=== PATIENT | male | born 1975 | race Caucasian/White ===

== ENCOUNTER 2023-01-04 08:31 | Outpatient (REF) | payer OTHER, SELFPAY ==
[2023-01-04 13:48] LABS: CT PCR NOT DETECTED (Not Detect.); NG PCR NOT DETECTED (Not Detect.)
[2023-01-05 08:03] LABS: HIV AB/AG Nonreactive (Nonreactive); ~HepC Num1 0.08 S/CO (0.00-0.79); ~Hepatitis C Antibody Nonreactive (Nonreactive)
[2023-01-05 08:08] LABS: Syphilis Screen Nonreactive (Nonreactive)
== END 2023-01-04 08:32 | disposition home or self-care (01) ==
LOC: HO.HMGCLDS 08:31
PROVIDERS: PCP Internal Medicine; Visit Provider Emergency Medicine
DX: Z11.4 Encounter for screening for human immunodeficiency virus [HIV] (principal); Z11.3 Encounter for screening for infections with a predominantly sexual mode of transmission; Z20.2 Contact with and (suspected) exposure to infections with a predominantly sexual mode of transmission; Z71.1 Person with feared health complaint in whom no diagnosis is made
CPT/HCPCS: 0353U; 36415; 86780; 86803; 87389

== ENCOUNTER 2023-06-27 10:08 | Outpatient (REF) | payer OTHER, SELFPAY ==
[2023-06-27 12:55] LABS: Anion Gap 15 (12-20); Blood Urea Nitrogen 13 mg/dL (9-16); Calcium 9.7 mg/dL (8.4-10.2); Carbon Dioxide 24 mmol/L (22-29); Chloride 106 mmol/L (96-108); Estimated Glomerular Filt Rate > 60; Glucose Fasting 76 mg/dL (60-99); Potassium 4.2 mmol/L (3.3-5.1); Sodium 141 mmol/L (135-145)
[2023-06-28 23:23] LABS: Lyme Abs Screen <0.90 index
== END 2023-06-27 10:09 | disposition home or self-care (01) ==
LOC: HO.LAB 10:08
PROVIDERS: Visit Provider Psychiatry & Neurology Neurology
DX: M99.09 Segmental and somatic dysfunction of abdomen and other regions (principal)
CPT/HCPCS: 36415; 80048; 86617; 86618

== ENCOUNTER 2023-08-08 09:40 | Outpatient (REF) | payer OTHER, SELFPAY | END 2023-08-08 09:41 | disposition home or self-care (01) | LOC: HO.MRI 09:40 | PROVIDERS: PCP Internal Medicine; Visit Provider Psychiatry & Neurology Neurology | DX: Z13.89 Encounter for screening for other disorder (principal) ==

== ENCOUNTER 2023-08-22 08:56 | Outpatient (REF) | payer OTHER, SELFPAY ==
[2023-08-22 10:33] LABS: Syphilis Screen Nonreactive (Nonreactive)
[2023-08-22 11:07] LABS: Lactate Dehydrogenase 200 U/L (118-273)
== END 2023-08-22 08:57 | disposition home or self-care (01) ==
LOC: HO.LAB 08:56
PROVIDERS: PCP Internal Medicine; Visit Provider Psychiatry & Neurology Neurology
DX: M48.00 Spinal stenosis, site unspecified (principal)
CPT/HCPCS: 36415; 82550; 83615; 86780

== ENCOUNTER 2023-09-28 09:43 | Outpatient (AMB) | payer OTHER, SELFPAY ==
--- NOTE | 2023-09-28 09:46 | MHC.OFFVIS ---
Intake Vital Signs 09/28/23 09:51 Weight 327 lb BP 146/70 H Blood Pressure Location Rt brachial Position Sitting Pulse 84 Intake Visit Reasons: Paraspinal muscle Bx Intake Note: This patient was referred by Dr. Helm for a paraspinal muscle biopsy consultation. Patient c/o; reports trouble walking. 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 He says that he has been following a neurologist for about 5 years now because of frequent cramping and tightness of his back. He has had this bulge on the left flank area that was deep to be secondary to muscle atrophy. He is being worked up for this as his imaging studies had shown paraspinal muscle atrophy of the left abdominal wall muscles. He denies any other significant muscle weakness nor sensory deficits. His CPK levels have been elevated. 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 FORMERLY [facility], [facility]–1983 Medical History (Updated 09/28/23 @ 10:08 by Austyn Reid MD) Muscular dystrophy Morbid obesity Concern about STD in male without diagnosis Surgical History History of surgery on upper extremity Review of Systems Const Denies chills and Denies fever(s) Card Denies chest pain, Denies dyspnea and Denies dyspnea on exertion Resp Denies cough, Denies dyspnea and Denies dyspnea on exertion GI Denies hematochezia and Denies change in bowel habits Denies hematuria and Denies difficulty urinating Musc Reports back pain and Denies limited range of motion Neuro Denies focal weakness and Denies convulsions Psych Denies depression and Denies mood swings Physical Exam Const General: comfortable and no acute distress Orientation/consciousness: patient oriented x3 Neck Neck: Yes no lymphadenopathy Resp Auscultation: clear to auscultation bilaterally Cardio Rhythm: regular rhythm GI Other: Bulging on the left area Palpation (GI): Soft to palpation, nontender and no guarding Neuro General: patient oriented x3 Assessment & Plan Assessment & Plan (1) Muscular dystrophy: Code(s): G71.00 - Muscular dystrophy, unspecified Plan: He is being worked for muscle dystrophy and has this weakness of the abdominal wall and flank area on the. He was referred for muscle biopsy of the paraspinal muscles. I explained to him the technique of this procedure which will be done under anesthesia in the operating room. I discussed the risks including but not limited to bleeding, infections, postop pain, poor healing, as well as the benefits and alternatives. He understands and wants to proceed Coding Level of Care Code New Pt Level 3 (36686) Diagnoses Muscular dystrophy G71.00
[2023-09-28 09:51] VITALS: BP 146/70; PULSE 84
== END 2023-09-28 10:08 | disposition home or self-care (01) ==
PROVIDERS: PCP Internal Medicine; Referring Provider Psychiatry & Neurology Neurology; Visit Provider Surgery
DX: G71.00 Muscular dystrophy, unspecified (principal)
CPT/HCPCS: 99203

== ENCOUNTER → 2023-09-28 09:43 | Outpatient (BNVA) | payer OTHER, SELFPAY | PROVIDERS: PCP Internal Medicine; Visit Provider Surgery | DX: G71.00 Muscular dystrophy, unspecified (principal) | CPT/HCPCS: 99202 ==

== ENCOUNTER 2023-10-11 08:05 | Day surgery (SDC) | payer OTHER, SELFPAY ==
--- NOTE | 2023-10-10 09:15 | P.CONAN_ITS ---
Documented by User: Glenda White NP 10/10/23 09:17 HPI - Anesthesia Eval Consult details Narrative: 47yo M for Muscle Biopsy under anesthesia for paraspinal muscle of back [facility] Active Problems Active Problems: All Active Problems (Updated 09/28/23 @ 10:08 by Austyn Reid MD) Muscular dystrophy (Acute) Morbid obesity (Acute) Concern about STD in male without diagnosis (Acute) Past Medical History Medical History Muscular dystrophy Morbid obesity Concern about STD in male without diagnosis Surgical History Surgical History History of surgery on upper extremity Social History Social History Patient Tobacco Use Status: Never used Tobacco Are you DNR?: No Advance Directives: No Advance Directives Information Provided: Yes Nutrition Risks: No Nutritional Risk Meds Allergies Allergy/AdvReac Type Severity Reaction Status Date / Time Iodinated Contrast Media Allergy Severe Hives Verified 10/11/23 08:56 [IV CONTRAST] Home Medications Medication Instructions Recorded Confirmed Last Taken Type multivitamin 1 tab PO DAILY 09/28/23 10/07/23 Unknown History Exam Exam Date and Time: October 10, 202315 Height,Weight and Vital Signs: Weight 148.325 kg Pertinent Lab Results Pertinent Lab Results: Laboratory Tests 06/27/23 10:23 Sodium 141 Potassium 4.2 Chloride 106 Carbon Dioxide 24 BUN 13 Creatinine 0.80 Assessment and Plan Assessment Anesthesia Assessment: Chart Reviewed Documented by User: Colt Nevarez MD 10/11/23 09:53 [facility] Past Medical History Medical History Muscular dystrophy Morbid obesity Concern about STD in male without diagnosis Surgical History Surgical History History of surgery on upper extremity History of Problems with Anesthesia: No Social History Social History Patient Tobacco Use Status: Never used Tobacco Are you DNR?: No Advance Directives: No Advance Directives Information Provided: Yes Nutrition Risks: No Nutritional Risk Meds Allergies Allergy/AdvReac Type Severity Reaction Status Date / Time Iodinated Contrast Media Allergy Severe Hives Verified 10/11/23 08:56 [IV CONTRAST] Home Medications Medication Instructions Recorded Confirmed Last Taken Type multivitamin 1 tab PO DAILY 09/28/23 10/07/23 Unknown History Exam Airway Mallampati Class: II TM Dist: >3cm Neck ROM: Full Heart: rrr Lungs: cta Assessment and Plan Assessment Anesthesia Assessment: Anesthesia Plan Discussed Final Anesthetic Review History of Problems with Anesthesia: No ASA Class: III Final Preanesthetic Review: No Changes in Pt Med Stat, Meds/Allgs Chart Reviewed, Consent Obtained/Reviewed and Anes Risks/Benef Reviewed Patient Risk: Intermediate Procedure Risk: Low Anesthetic Plan Anesthetic Plan: MAC: and Agree w/ Assess. and Plan Disposition: Standard PACU
[2023-10-11] VITALS (11 sets, daily range): BP systolic 83–138; BP diastolic 42–86; PULSE 53–72; RESP 16–18; TEMP 36.1–36.6; O2SAT 88–97; BMI 41.1
[2023-10-11] MEDS: Lactated Ringers 1,000 ML 100 ML IVCONT (08:39)
--- NOTE | 2023-10-11 09:35 | MHC.SHP ---
Pre-Procedural Eval Section A Date of Service: 10/11/23 The patient is an INPATIENT: No Changes since office visit: No Cold of Flu in the past 2 weeks, No New Medical Problems, No Changes in Medication and No Patient answered all questions The History & Physical has been completed within 30 days and I have reviewed it.: Yes Section B Chief Complaint: Muscular dystrophy, unspecified Allergies: Allergies Allergy/AdvReac Type Severity Reaction Status Date / Time Iodinated Contrast Media Allergy Severe Hives Verified 10/11/23 08:56 [IV CONTRAST] Plan I have reviewed the history and physical and performed a pertinent physical examination on my patient. No changes have occurred unless specified. Time Spent With Patient Time: Total time managing care of this patient today ____ minutes.
--- NOTE | 2023-10-11 10:41 | P.OP_ITS ---
Operative Note Operative Note Date of Service: 10/11/23 Narrative: Preop diagnosis: Muscular dystrophy Postop diagnosis: Muscular dystrophy Procedure: Muscle biopsy, left paraspinal muscle under MAC Surgeon: Austyn Reid MD captain assistant: JUSTIN Myrick The patient is a 47-year-old male with weakness of the abdominal wall muscle and flank area on the left. He had imaging study showing atrophy of these muscles. He was referred to me for paraspinal muscle biopsy by the neurologist. He understood the technique of the procedure under anesthesia. He was aware of the risks, benefits, and alternatives He was brought to the operating room. He was placed in prone position under monitored anesthesia care. The mid back area was prepped and draped in the usual sterile fashion. A surgical time-out was done. The patient received cefazolin 3 g IV preoperatively . I infiltrated the planned line of incision on the left paraspinal area with lidocaine 1%. I made a generous incision in view of the patient's morbid obesity longitudinally using a blade 15. this was carried down with electrocautery through the full-thickness of the skin and thick subcutaneous fat. Again, in view of the patient's habitus, we had to go through thick amount of subcutaneous fat before we were able to visualize the fascia. The fascia was incised. I proceeded to expose the muscle fibers. I isolated muscle fibers and do this proximally distally and placed this on muscle biopsy clamps. Two samples of these muscle fibers were obstained and sent. I cauterized divided muscle for hemostasis. I copies irrigated. Once hemostasis was confirmed, I post the fascia with a [id number] Polysorb 2-0 stitch. The thick subcutaneous layer was reapposed with Polysorb 3-0 interrupted sutures. Skin closure was achieved with Polysorb 4-0 subcuticular running stitch . The area was then infiltrated with Marcaine 0.5% for postop analgesia. Dressings were applied. The procedure was completed. The patient tolerated the procedure well. There were no immediate compl ications. Estimated blood loss was about 5 cc. Patient was then transferred to the recovery room with stable vital signs.
[2023-10-11] MEDS: ondansetron HCL 4 MG/2 ML VIAL IVPUSH (13:29)
== END 2023-10-11 14:51 | disposition home or self-care (01) ==
PROVIDERS: PCP Internal Medicine; Visit Provider Surgery
PROC: (CPT 20205; principal; 2023-10-11 10:20)
DX: G71.00 Muscular dystrophy, unspecified (principal); E66.01 Morbid (severe) obesity due to excess calories; Z79.899 Other long term (current) drug therapy; Z91.041 Radiographic dye allergy status
CPT/HCPCS: 20205; 88300; 88305; 88313; 88319; 88348; J0690; J2250; J2405; J2795; J3010

== ENCOUNTER → 2023-10-11 08:05 | Outpatient (BNV) | payer OTHER, SELFPAY | PROVIDERS: PCP Internal Medicine; Visit Provider Surgery | DX: G71.00 Muscular dystrophy, unspecified (principal) | CPT/HCPCS: 20205 ==

== ENCOUNTER 2023-10-24 09:30 | Outpatient (AMB) | payer OTHER, SELFPAY ==
--- NOTE | 2023-10-24 09:35 | A.OFFVIS_ITS ---
Intake Vital Signs 10/24/23 09:45 Height 6 ft 2 in Weight 324 lb 8 oz BMI 41.7 BP 144/70 H Blood Pressure Location Lt brachial Position Sitting Pulse 64 Intake Visit Reasons: S/P paraspinal muscle biopsy Intake Note: Patient is seen in office for post op assessment post paraspinal muscle biopsy. 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 He tolerated them procedure well. He currently denies significant complaints. FORMERLY [facility], [facility] Medical History Muscular dystrophy Morbid obesity Concern about STD in male without diagnosis Surgical History History of surgery on upper extremity Patient Tobacco Use Status: Never used Tobacco Review of Systems Const Denies chills and Denies fever(s) Card Denies chest pain, Denies dyspnea and Denies dyspnea on exertion Resp Denies cough, Denies dyspnea and Denies dyspnea on exertion GI Denies hematochezia and Denies change in bowel habits Denies hematuria and Denies difficulty urinating Musc Denies back pain and Denies limited range of motion Neuro Denies focal weakness and Denies convulsions Psych Denies depression and Denies mood swings Physical Exam Const Other: Morbidly obese General: comfortable and no acute distress Back/Spine/Pelvis Other: Incision is well healed, no signs of infection Assessment & Plan Assessment & Plan (1) Muscular dystrophy: Code(s): G71.00 - Muscular dystrophy, unspecified Plan: Status post para spinal muscle biopsy. The incision is well healed. His final path report is not back yet. He can otherwise follow up with me on a p.r.n. basis. His path report will be forwarded to his neurologist and primary care physician. Coding Level of Care Code Global (07087) Diagnoses Muscular dystrophy G71.00
[2023-10-24 09:45] VITALS: BP 144/70; PULSE 64; BMI 41.7
== END 2023-10-24 09:47 | disposition home or self-care (01) ==
PROVIDERS: PCP Internal Medicine; Visit Provider Surgery
DX: G71.00 Muscular dystrophy, unspecified (principal)
CPT/HCPCS: 99024

== ENCOUNTER → 2023-10-24 09:30 | Outpatient (BNVA) | payer OTHER, SELFPAY | PROVIDERS: PCP Internal Medicine; Visit Provider Surgery ==

== ENCOUNTER 2024-04-24 09:35 | Outpatient (AMB) | payer OTHER, SELFPAY ==
[2024-04-24 10:11] VITALS: BP 122/80; PULSE 77; TEMP 36.1; O2SAT 95; BMI 42.2
--- NOTE | 2024-04-24 10:11 | MHC.OFFWIV ---
Intake Vital Signs 04/24/24 10:11 Height 6 ft 2 in Weight 329 lb BMI 42.2 BP 122/80 Blood Pressure Location Lt brachial Position Sitting Pulse 77 Pulse Source Pulse Oximeter Temp 97.0 F Temp Source Temporal Artery Scan Pulse Oximetry (%) 95 Oxygen Delivery Method Room Air Intake Visit Reasons: EST/right foot pain (lobby) Intake Note: pt is here today for rt foot pain started 1 week ago Patient Tobacco Use Status: Never used Tobacco Allergies Iodinated Contrast Media [IV CONTRAST] Allergy (Severe, Verified 04/24/24 11:04) Hives Medication List - Last Reconciled 04/24/24 by SAMANTHA Santos ibuprofen 600 mg PO Q6H PRN meloxicam 15 mg PO DAILY multivitamin 1 tab PO DAILY prednisone 50 mg PO DAILY Do you need a note to return to daycare/school/sports/work: No HPI HPI Comments History of Present Illness Details Patient is a 48-year-old male in today for a sick visit. Reports waking up 1 day prior to this appointment with pain on the dorsal aspect of his right foot. Also reports scant amount of swelling. Patient denies any trauma to the area. Has utilized [id number] Tylenol with mild relief. Patient is able to walk on the extremity with a limp. Has history of happening before, states he just wake up sometimes and he will have right foot pain even though he did did not hit it or injury in any way. On physical exam patient has erythema over the right medial protrusion of the metatarsal head. Patient has scant edema. Able to ambulate on the affected extremity. No tingling or numbness. No drainage. [facility] Medical History Muscular dystrophy Morbid obesity Concern about STD in male without diagnosis Surgical History History of biopsy (10/11/23) History of surgery on upper extremity Social History Patient Tobacco Use Status: Never used Tobacco Review of Systems Const All systems reviewed & are unremarkable except as noted in HPI and below Denies fever(s) Card Denies chest pain and Denies dyspnea Resp Denies dyspnea Musc Denies deformity, Reports arthralgias (Right foot) and Denies tingling Skin/Breast Reports erythema (Right foot) Neuro Denies tingling and Denies paresthesias Physical Exam Vital Signs: Last Vital Signs Temp 97.0 F 04/24/24 10:11 Pulse 77 04/24/24 10:11 BP 122/80 04/24/24 10:11 Pulse Ox 95 04/24/24 10:11 Oxygen Delivery Method Room Air 04/24/24 10:11 BMI result Body Mass Index 42.2 Const Other: Appearance: Alert.? Oriented X3.? No acute distress.? Head: Normocephalic. Neck: Normal inspection.? Neck supple.? CVS: Normal heart rate and rhythm.? Pulses normal.? Respiratory: No respiratory distress.? Breath sounds normal.? Abdomen: Soft and nontender.? Skin: +erythema over right medial protrusion of metatarsal head. Extremities: Scant right foot edema. +tenderness to 1st and 2nd metatarsal. No obvious deformity. Neuro: Oriented X 3.? No motor deficit.? No sensory deficit. CN 2-12 intact Assessment & Plan Assessment & Plan (1) Right foot pain: Comment: Presentation most consistent with gout or inflamed bunion. Will obtain x-ray. Patient will be given meloxicam and prednisone and instructed to rest the affected joint. Can also utilize ice for 15 minutes per application. Patient has been educated on signs of worsening symptoms and when to report back to the walk-in or when to present to the ED. Code(s): M79.671 - Pain in right foot Plan: Take your medications as prescribed. If you were prescribed antibiotics today, it is important that you take your medication to their entirety, do not skip any doses, do not finish them early. Follow-up with your primary care provider this week. Return to the emergency department with new or worsening symptoms. Such as fevers, chills, chest pain, shortness of breath, nausea, vomiting, dizziness, headache, vision changes, lethargy In case of emergency call 911 Plan Follow-up with PCP Orders: Orders XR foot RT min 3V Today M79.671 - Pain in right foot Medications: New prednisone 50 mg PO DAILY 5 tabs 0RF meloxicam Do not combine with other NSAIDS. 15 mg PO DAILY 14 tabs 0RF Coding Level of Care Code Est Pt Level 3 (74718) Diagnoses Right foot pain M79.671 Time Spent (min) 25
== END 2024-04-24 11:29 | disposition home or self-care (01) ==
PROVIDERS: PCP Internal Medicine; Visit Provider Nurse Practitioner Primary Care
DX: M79.671 Pain in right foot (principal)
CPT/HCPCS: 99213

== ENCOUNTER 2024-04-24 10:48 | Outpatient (REF) | payer OTHER, SELFPAY ==
--- NOTE | ~2024-04-24 | XR_ITS ---
EXAMINATION: XR FOOT, RIGHT CLINICAL INFORMATION: Right foot pain COMPARISON: None available. TECHNIQUE: AP, lateral, and oblique views of the right foot. FINDINGS: Some minimal degenerative changes are present at DIP joints with some mild lateral subluxation/angulation of the PIP joint of the second toe. Some mild osteophytes are seen arising from the medial malleolus. The bones and soft tissues are otherwise unremarkable. No fracture. Alignment is anatomic. Joint spaces are maintained. XR/XR foot RT min 3V IMPRESSION: Mild degenerative changes as described above. No acute finding.
== END 2024-04-24 10:49 | disposition home or self-care (01) ==
LOC: HO.HMGCX 10:48
PROVIDERS: PCP Internal Medicine; Visit Provider Nurse Practitioner Primary Care
DX: M79.671 Pain in right foot (principal)
CPT/HCPCS: 73630

== ENCOUNTER 2024-05-17 09:51 | Outpatient (AMB) | payer OTHER, SELFPAY ==
--- NOTE | 2024-05-17 10:04 | AM.OFFWIN_ITS ---
Intake Vital Signs 05/17/24 10:05 Height 6 ft 2 in Weight 329 lb BMI 42.2 BP 120/78 Blood Pressure Location Lt brachial Position Sitting Pulse 82 Pulse Source Pulse Oximeter Temp 97.5 F Temp Source Temporal Artery Scan Pulse Oximetry (%) 95 Oxygen Delivery Method Room Air Intake Visit Reasons: EP? Refill Rx for Gout Intake Note: pt is here today for refill for gout started Patient Tobacco Use Status: Never used Tobacco Allergies Iodinated Contrast Media [IV CONTRAST] Allergy (Severe, Verified 05/17/24 10:13) Hives Do you need a note to return to daycare/school/sports/work: No HPI HPI Comments History of Present Illness Details 48 y/o male patient who presents to walk in clinic with c/o right foot/Big toe pain and swelling. Pt was seen at the Walk in clinic and was diagnosed with Gout. He was given Prednisone and Meloxicam. Pt reports completing the dose and now feels like the symptoms have returned. Pt asking for refills of medications. Right Foot Xray: FINDINGS: Some minimal degenerative changes are present at DIP joints with some mild lateral subluxation/angulation of the PIP joint of the second toe. Some mild osteophytes are seen arising from the medial malleolus. The bones and soft tissues are otherwise unremarkable. No fracture. Alignment is anatomic. Joint spaces are maintained. ON LICENSE OF [facility] Medical History Muscular dystrophy Morbid obesity Concern about STD in male without diagnosis Surgical History History of biopsy (10/11/23) History of surgery on upper extremity Social History Patient Tobacco Use Status: Never used Tobacco Review of Systems Const All systems reviewed & are unremarkable except as noted in HPI and below Physical Exam Vital Signs: Last Vital Signs Temp 97.5 F 05/17/24 10:05 Pulse 82 05/17/24 10:05 BP 120/78 05/17/24 10:05 Pulse Ox 95 05/17/24 10:05 Oxygen Delivery Method Room Air 05/17/24 10:05 BMI result Body Mass Index 42.2 Const General: comfortable and no acute distress Nutritional Appearance: obese Orientation/consciousness: patient oriented x3 Neuro Other: Walks with slight limp General: patient oriented x3 and moves all extremities Extrem Right lower extremity: foot Details: tenderness Location: of the great toe Locat ion: along the dorsal aspect, toes with normal ROM, warmth Location: of the great toe Location: at the MTP joint and edema Location: of the great toe; no crepitus Psych Speech and movement: Normal speech and movement present Assessment & Plan Assessment & Plan (1) Right foot pain: Comment: DDx's: Gout, Bunion, Arthritis Code(s): M79.671 - Pain in right foot Plan: - 5th big Toe mild swelling and redness, Tender to touch @ MTP. Warmth to touch. - Ordered Urine Uric Acid levels - Started Colchicine - Refilled Meloxicam - F/U with PCP. Orders: Orders Uric Acid Urine Random Today M79.671 - Pain in right foot Medications: New colchicine 0.6 mg PO DAILY 30 caps 0RF M79.671 - Pain in right foot Refilled meloxicam Do not combine with other NSAIDS. 15 mg PO DAILY 30 tabs 0RF M79.671 - Pain in right foot Discontinued ibuprofen Discontinued Reason: Patient Completed Course 600 mg PO Q6H PRN 30 tabs 0RF pain Coding Level of Care Code Est Pt Level 3 (16103) Diagnoses Right foot pain M79.671 Time Spent (min) 15
[2024-05-17 10:05] VITALS: BP 120/78; PULSE 82; TEMP 36.4; O2SAT 95; BMI 42.2
== END 2024-05-17 11:01 | disposition home or self-care (01) ==
PROVIDERS: PCP Internal Medicine; Visit Provider Nurse Practitioner Family
DX: M79.671 Pain in right foot (principal)
CPT/HCPCS: 99213

== ENCOUNTER 2024-05-17 10:42 | Outpatient (REF) | payer OTHER, SELFPAY | END 2024-05-17 10:43 | disposition home or self-care (01) | LOC: HO.HMGCLDS 10:42 | PROVIDERS: PCP Internal Medicine; Visit Provider Nurse Practitioner Family | DX: M79.671 Pain in right foot (principal) | CPT/HCPCS: 84560 ==

== ENCOUNTER 2024-07-20 12:34 | Outpatient (AMB) | payer OTHER, SELFPAY ==
--- NOTE | 2024-07-20 12:39 | AM.OFFWIN_ITS ---
Intake Vital Signs 07/20/24 12:40 Height 6 ft 2 in Weight 332 lb BMI 42.6 BP 118/82 Blood Pressure Location Lt brachial Position Sitting Pulse 68 Pulse Source Pulse Oximeter Temp 98.2 F Temp Source Oral Pulse Oximetry (%) 97 Oxygen Delivery Method Room Air Intake Visit Reasons: EP Gout Intake Note: pt c/o gout RT foot. Started 2 days ago Patient Tobacco Use Status: Never used Tobacco Allergies Iodinated Contrast Media [IV CONTRAST] Allergy (Severe, Verified 07/20/24 12:39) Hives Do you need a note to return to daycare/school/sports/work: No HPI HPI Comments History of Present Illness Details Patient is a 48-year-old male complaining of right lower extremity toe pain x2 days. He states he has had gout before and he is pretty sure this is another gout flare. He came to this clinic in April and was treated with colchicine and meloxicam for his gout flare and it resolved. States his pain started again yesterday and base of his right 1st and 2nd toes and this morning it got much worse in the right great toe. He has reduced range of motion secondary to the pain. [facility] Medical History Muscular dystrophy Morbid obesity Concern about STD in male without diagnosis Surgical History History of biopsy (10/11/23) History of surgery on upper extremity Social History Patient Tobacco Use Status: Never used Tobacco Review of Systems Const All systems reviewed & are unremarkable except as noted in HPI and below Physical Exam Vital Signs: BMI result Body Mass Index 42.6 Const General: cooperative, healthy appearing, comfortable and no acute distress Orientation/consciousness: patient oriented x3 Limitations: no limitations HEENT Head: Yes normal to inspection Resp Effort & Inspection: normal respiratory effort and able to speak in complete sentences Neuro General: patient oriented x3 Extrem Right lower extremity: foot Details: normal to inspection, tenderness Location: of the great toe Location: at the MTP joint, abnormal ROM of toe Details: pain with active ROM and pain with passive ROM, no edema and vascular exam Details: normal capillary refill; no unusual warmth, no abrasion, no laceration and no ecchymosis Assessment & Plan Assessment & Plan (1) Acute gout: Code(s): M10.9 - Gout, unspecified Qualifiers: Gout site: toe Gout etiology: unspecified cause Laterality: right Qu alified Code(s): M10.9 - Gout, unspecified Plan: Sent colchicine and meloxicam to patient's pharmacy. Did review that if this is going to be a recurrent problem, he may want to talk to his PCP about prophylactic treatment for gout Plan See above Medications: New meloxicam 15 mg PO Q24H 7 tabs 0RF colchicine On day 1, take 2 tablets followed by 1 tablet 1 hour later. Do not exceed 3 tablets in 24 hours. On day 2 and 3, take 1 tablet every 12 hours. 0.6 mg PO DAILY 7 tabs 0RF Coding Level of Care Code New Pt Level 3 (60243) Diagnoses Acute gout involving toe of right foot, unspecified cause M10.9 Gout site: toe Gout etiology: unspecified cause Laterality: right
[2024-07-20 12:40] VITALS: BP 118/82; PULSE 68; TEMP 36.8; O2SAT 97; BMI 42.6
== END 2024-07-20 12:58 | disposition home or self-care (01) ==
PROVIDERS: PCP Internal Medicine; Visit Provider Physician Assistant
DX: M10.9 Gout, unspecified (principal)
CPT/HCPCS: 99203

== ENCOUNTER 2024-09-05 07:50 | Outpatient (AMB) | payer OTHER, SELFPAY ==
--- NOTE | 2024-09-05 08:02 | MHC.OFFVIS ---
Vital Signs 09/05/24 08:05 Height 6 ft 2 in Weight 334 lb 0.005 oz BMI 42.9 BP 112/74 Blood Pressure Location Lt brachial Position Sitting Pulse 75 Pulse Source Pulse Oximeter Pulse Oximetry (%) 97 Intake Visit Reasons: Gout/CM Intake Note: Patient presents for Gout. Allergies Iodinated Contrast Media [IV CONTRAST] Allergy (Severe, Verified 09/05/24 08:03) Hives Medication List - Last Reconciled 09/05/24 by Sury Brooke MD allopurinol 50 mg (1/2 x 100 mg) PO DAILY 30 days colchicine 0.6 mg PO DAILY 90 days multivitamin 1 tab PO DAILY HPI Comments Details: Patient is a 48 y.o. male with ?muscular dystrophy currently undergoing genetic testing who presents for evaluation of recurrent 1st MTP pain. Patient was in his usual state of health when he woke with excruciating pain to his right 1st MTP. He presented to [facility] urgent care (note reviewed) and was diagnosed with presumed gout. Given colchicine and meloxicam with improvement in his symtoms. XRs done at that time did not show any evidence of erosions. Since March he has had 2 more episodes of right 1st MTP pain and swelling requiring NSAIDs and colchicine. He followed up with his primary who sent him for evaluation. Risk Factors for Gout Reports: Obesity Denies: HTN, Family history of gout, CKD, EtOH use and Medications: low-dose ASA, diuretics, cyclosporine [facility] Medical History (Updated 09/05/24 @ 09:15 by Sury Brooke MD) Muscular dystrophy Morbid obesity Concern about STD in male without diagnosis Surgical History History of biopsy (10/11/23) History of surgery on upper extremity Social History Household Members: Family Housing: House Alcohol intake: never Patient Tobacco Use Status: Never used Tobacco Review of Systems Const Details: Review of Systems Constitutional: Denies fever, chills, weight loss ENT: Denies vision changes, eye pain or eye redness, dental caries, dry mouth GI: Denies nausea, vomiting, diarrhea, abdominal pain, change in BM Pulm: Denies SOB, LOPEZ, hemoptysis, wheezing Cards: Denies chest pain, palpitations Skin: Denies Raynaud's, rash, nail changes, photosensitivity, EM PHYSICIAN: Denies headaches, weakness, paresthesias, recurrent falls MSK: Complains of joint pain. Denies joint swelling, muscle weakness, bone pain All other systems reviewed and are unremarkable except noted above insert ROS Physical Exam Const Other: Physical Examination Patient well appearing and in no apparent painful distress Able to rise from chair without support. ?Gait normal. Constitutional Mucous membranes pink and moist patient alert and cooperative HEENT Conjunctiva and sclera clear. ?Pupils equal round and reactive to light. ?No lymphadenopathy. ?Normal dentition. Respiratory System Normal respiratory effort and able to speak in complete sentences. ?Clear to auscultation bilaterally. ?No crackles, rales, rhonchi, wheezes heard. Cardiac System Regular rate and rhythm. ?S1 and S2 heard no murmurs. ?Radial pulses intact bilaterally MSK No deformity, swelling, abnormalities noted to bilateral hands. ?No evidence of synovitis. ?Erythema over the 1st MTP joint without tenderness to palpation. Able to move all joints with full range of motion, without limitation. Skin No tophi noted to digits on hand or feet, olecranon bursa, extensor surface of forearm, achilles tendon, antihelix of ear Scattered seborrheic keratoses on the arms and upper back Results Reviewed Results Reviewed: Foot x-ray 04/24/2024 reviewed. Ordered by Dante Guerra. No evidence of rat bite erosions involving the 1st MTP (my read) Laboratory Tests 06/27/23 10:23 Sodium 141 Potassium 4.2 Chloride 106 Carbon Dioxide 24 BUN 13 Creatinine 0.80 Estimated GFR > 60 Assessment & Plan Assessment & Plan (1) Idiopathic chronic gout of foot without tophus: Code(s): M1A.0790 - Idiopathic chronic gout, unspecified ankle and foot, without tophus (tophi) Category: Medical Qualifiers: Laterality: right Qualified Code(s): M1A.0710 - Idiopathic chronic gout, right ankle and foot, without tophus (tophi) Plan: #Chronic gouty arthritis of the right foot Patient with a new diagnosis of non crystal proven gout based on recurrent attacks to the 1st MTP. Given that he has had more than 2 attacks in this year he qualifies for urate lowering therapy. We will start him on a low dose of allopurinol and check his uric acid and kidney function today. We will also check inflammatory markers (ESR and CRP). Had a discussion with him about the diagnosis of gout as well as to avoid foods that can precipitate gout including high fructose corn syrup, bear, shellfish including shrimp and red meat. Also gave him a handout about gout. We will continue to monitor patient frequently over the next several months with the goal uric acid of less than 6. During this initial therapy he will also be on 0.6 mg of colchicine to prevent gout flares. (2) On allopurinol therapy: Code(s): Z79.899 - Other bonbon dipper (current) drug therapy Category: Medical Plan: #Long-term Current Use of Allopurinol Risks and benefits of allopurinol discussed with patient Benefits include decreased gout flares, remission of gout and reduction of tophi Risks include allopurinol hypersensitivity syndrome which is a severe cutaneous adverse reaction associated with allopurinol use particularly in patients who are HLA B*5801 positive, increased transaminases, GI upset including diarrhea, nausea and vomiting, and other dermatologic manifestations. (3) On colchicine therapy: Code(s): Z79.899 - Other bonbon dipper (current) drug therapy Category: Medical Plan: #Long-term use of colchicine Risks and benefits of long-term colchicine for the management of this patient's gout discussed with patient. Benefits include reduced occurrence of flares while we titrate and regulate his uric acid on allopurinol and other uric acid lowering medications. ? Risks include worsening myalgias especially if on statins and GI upset including diarrhea Plan I spent 40 minutes reviewing the record and labs, seeing the patient, discussing the treatment plan and documenting in the medical record Orders: Orders Erythrocyte Sedimentation Rate Today M10.9 - Gout, unspecified Uric Acid Today M10.9 - Gout, unspecified XR foot RT min 3V Today M10.9 - Gout, unspecified Complete Blood Count Auto Diff 4 Weeks M10.9 - Gout, unspecified UA and rflx microscopic Today M10.9 - Gout, unspecified Uric Acid 4 Weeks M10.9 - Gout, unspecified Erythrocyte Sedimentation Rate 4 Weeks M10.9 - Gout, unspecified Complete Blood Count Auto Diff Today M10.9 - Gout, unspecified Comprehensive Met. Panel Today M10.9 - Gout, unspecified XR foot LT min 3V Today M10.9 - Gout, unspecified Comprehensive Met. Panel 4 Weeks M10.9 - Gout, unspecified C Reactive Protein Today M10.9 - Gout, unspecified Medications: New colchicine 0.6 mg PO DAILY 90 days 90 caps 1RF allopurinol 50 mg (1/2 x 100 mg) PO DAILY 30 days 30 tabs 0RF Coding Level of Care Code New Pt Level 4 (40220) Complex EM visit Add On G2211 Diagnoses Idiopathic chronic gout of right foot without tophus M1A.0710 Laterality: right On allopurinol therapy Z79.899 On colchicine therapy Z79.899
[2024-09-05 08:05] VITALS: BP 112/74; PULSE 75; O2SAT 97; BMI 42.9
== END 2024-09-05 08:38 | disposition home or self-care (01) ==
PROVIDERS: PCP Internal Medicine; Visit Provider Student in an Organized Health Care Education/Training Program
DX: M1A.0710 Idiopathic chronic gout, right ankle and foot, without tophus (tophi) (principal); Z79.899 Other long term (current) drug therapy
CPT/HCPCS: 99204; G2211

== ENCOUNTER → 2024-09-05 07:50 | Outpatient (BNVA) | payer OTHER, SELFPAY | PROVIDERS: PCP Internal Medicine; Visit Provider Student in an Organized Health Care Education/Training Program | DX: M1A.0710 Idiopathic chronic gout, right ankle and foot, without tophus (tophi) (principal); G71.00 Muscular dystrophy, unspecified; E66.01 Morbid (severe) obesity due to excess calories; Z68.41 Body mass index [BMI] 40.0-44.9, adult; Z79.899 Other long term (current) drug therapy | CPT/HCPCS: 99202 ==

== ENCOUNTER 2024-09-05 08:45 | Outpatient (REF) | payer OTHER, SELFPAY ==
[2024-09-05 10:39] LABS: MANUAL DIFF FLAG NO
[2024-09-05 10:44] LABS: Basophils Absolute Auto 0.1 X10*3/uL (0.0-0.2); Basophils Percent Auto 0.9 % (0-2); Eosinophils Absolute Auto 0.2 X10*3/uL (0.0-0.4); Eosinophils Percent Auto 2.8 % (0-4); Hematocrit 46.4 % (42.0-52.0); Hemoglobin 16.2 g/dl (14.0-18.0); Imm Gran Abs Auto 0.03 X10*3/uL (0.00-0.03); Imm Gran Pct Auto 0.4 % (0.0-0.4); Lymphocytes Absolute Auto 1.9 X10*3/uL (1.2-4.9); Lymphocytes Percent Auto 24.7 % (20-40); Mean Corpuscular HGB Conc 34.9 g/dl (31.0-36.0); Mean Corpuscular Hemoglobin 32.7 pg (27.0-33.0); Mean Corpuscular Volume 93.7 fL (80.0-98.0); Mean Platelet Volume 9.2 fL (9.4-12.4); Monocytes Absolute Auto 0.9 X10*3/uL (0.1-1.2); Monocytes Percent Auto 12.1 % (2-11); Neutrophils Absolute Auto 4.5 x10*3/uL (2.0-8.3); Neutrophils Percent Auto 59.1 % (45-73); Platelet Count 296 X10*3/uL (160-400); Red Blood Count 4.95 X10*6/uL (4.60-5.80); Red Cell Distribution Width 12.4 % (11.0-16.0); White Blood Count 7.5 X10*3/uL (4.8-10.8)
[2024-09-05 10:47] LABS: Appearance Urine Clear; Color Urine Yellow; Glucose Urine UA Negative (Negative); Leukocyte Esterase Urine Negative (Negative); Nitrite Urine Negative (Negative); UMIC TRIGGER UA YES; Urine Blood Trace (Negative); Urine Ketones Negative (Negative); Urine Protein Negative (Neg-Trace)
[2024-09-05 10:54] LABS: Bacteria Urine None Seen (None Seen); Hyaline Casts Urine 0-2 /LPF (0-2); RBC Urine 0-2 /HPF (0-2); Squamous Epithelial Cell Urine 0-2 /HPF (0-2); WBC Urine 0-5 /HPF (0-5)
[2024-09-05 10:58] LABS: Alanine Aminotransferase 37 U/L (0-40); Albumin Level 4.5 g/dL (3.5-5.0); Alkaline Phosphatase 83 U/L (39-117); Anion Gap 11 (12-20); Aspartate Amino Transferase 33 U/L (5-37); Bilirubin Total 0.6 mg/dL (0.0-1.0); Blood Urea Nitrogen 13 mg/dL (9-16); Calcium 9.6 mg/dL (8.4-10.2); Carbon Dioxide 27 mmol/L (22-29); Chloride 105 mmol/L (96-108); Estimated Glomerular Filt Rate > 60; Glucose Random 98 mg/dL (60-115); Potassium 4.3 mmol/L (3.3-5.1); Sodium 139 mmol/L (135-145); Uric Acid 8.1 mg/dL (3.4-7.0)
[2024-09-05 11:38] LABS: Erythrocyte Sedimentation Rate 8 MM/HR (0-15)
== END 2024-09-05 08:46 | disposition home or self-care (01) ==
LOC: HO.10HDL 08:45
PROVIDERS: Visit Provider Student in an Organized Health Care Education/Training Program
DX: M10.9 Gout, unspecified (principal)
CPT/HCPCS: 36415; 80053; 81001; 84550; 85025; 85652; 86140

== ENCOUNTER 2024-10-01 07:36 | Outpatient (REF) | payer OTHER, SELFPAY ==
[2024-10-01 07:55] LABS: MANUAL DIFF FLAG NO
[2024-10-01 08:10] LABS: Basophils Absolute Auto 0.1 X10*3/uL (0.0-0.2); Basophils Percent Auto 1.1 % (0-2); Eosinophils Absolute Auto 0.3 X10*3/uL (0.0-0.4); Eosinophils Percent Auto 4.5 % (0-4); Hematocrit 43.7 % (42.0-52.0); Hemoglobin 15.6 g/dl (14.0-18.0); Imm Gran Abs Auto 0.03 X10*3/uL (0.00-0.03); Imm Gran Pct Auto 0.4 % (0.0-0.4); Lymphocytes Absolute Auto 2.1 X10*3/uL (1.2-4.9); Lymphocytes Percent Auto 29.9 % (20-40); Mean Corpuscular HGB Conc 35.7 g/dl (31.0-36.0); Mean Corpuscular Hemoglobin 32.8 pg (27.0-33.0); Mean Corpuscular Volume 91.8 fL (80.0-98.0); Mean Platelet Volume 9.2 fL (9.4-12.4); Monocytes Absolute Auto 0.8 X10*3/uL (0.1-1.2); Monocytes Percent Auto 10.8 % (2-11); Neutrophils Absolute Auto 3.7 x10*3/uL (2.0-8.3); Neutrophils Percent Auto 53.3 % (45-73); Platelet Count 269 X10*3/uL (160-400); Red Blood Count 4.76 X10*6/uL (4.60-5.80); Red Cell Distribution Width 12.4 % (11.0-16.0)
[2024-10-01 08:53] LABS: Alanine Aminotransferase 43 U/L (0-40); Albumin Level 4.2 g/dL (3.5-5.0); Alkaline Phosphatase 87 U/L (39-117); Anion Gap 14 (12-20); Aspartate Amino Transferase 38 U/L (5-37); Bilirubin Total 0.3 mg/dL (0.0-1.0); Blood Urea Nitrogen 12 mg/dL (9-16); Calcium 9.4 mg/dL (8.4-10.2); Carbon Dioxide 27 mmol/L (22-29); Chloride 104 mmol/L (96-108); Estimated Glomerular Filt Rate > 60; Glucose Random 87 mg/dL (60-115); Sodium 141 mmol/L (135-145); Total Protein 7.5 g/dL (6.5-8.0); Uric Acid 7.7 mg/dL (3.4-7.0)
[2024-10-01 08:57] LABS: Erythrocyte Sedimentation Rate 7 MM/HR (0-15)
[2024-10-01 09:56] LABS: Appearance Urine Clear; Color Urine Yellow; Glucose Urine UA Negative (Negative); Leukocyte Esterase Urine Negative (Negative); Nitrite Urine Negative (Negative); PH 5.5 (5.0-9.0); Specific Gravity - Urine 1.015 (1.005-1.025); Urine Blood Negative (Negative); Urine Ketones Negative (Negative); Urine Protein Negative (Neg-Trace)
== END 2024-10-01 07:37 | disposition home or self-care (01) ==
LOC: HO.10HDL 07:36
PROVIDERS: Visit Provider Student in an Organized Health Care Education/Training Program
DX: M10.9 Gout, unspecified (principal)
CPT/HCPCS: 36415; 80053; 81003; 84550; 85025; 85652

== ENCOUNTER 2024-10-03 07:20 | Outpatient (AMB) | payer OTHER, SELFPAY ==
--- NOTE | 2024-10-03 07:23 | MHC.OFFVIS ---
Vital Signs 10/03/24 07:26 Height 6 ft 2 in Weight 337 lb 11.971 oz BMI 43.4 BP 120/78 Blood Pressure Location Lt brachial Position Sitting Pulse 87 Pulse Source Pulse Oximeter Pulse Oximetry (%) 98 Oxygen Delivery Method Room Air Intake Visit Reasons: Gout/CM Intake Note: Patient presents for Gout. Allergies Iodinated Contrast Media [IV CONTRAST] Allergy (Severe, Verified 10/03/24 07:26) Hives Medication List - Last Reconciled 10/03/24 by Sury Brooke MD allopurinol 100 mg PO DAILY 90 days colchicine 0.6 mg PO DAILY 90 days multivitamin 1 tab PO DAILY HPI Comments Details: Patient is a 48-year-old male with muscular dystrophy who presents for follow-up for non tophaceous non crystal proven gout. Interval History: Patient last seen 09/05/2024. At that time he was presumed diagnosis of gout based on recurrent 1st MTP monoarticular arthritis. He was started on urate lowering therapy with allopurinol 50 mg. Today he reports he is doing well. Has not had any further gout attacks since the last visit. Rheumatologic History: Diagnosed with non crystal proven non tophaceous gout based on recurrent 1st MTP monoarticular arthritis. Started on allopurinol 08/2024 Current Rheumatology Medication(s): Allopurinol 50mg Colchicine 0.6mg PFSH Medical History (Updated 10/03/24 @ 08:00 by Sury Brooke MD) Muscular dystrophy Morbid obesity Concern about STD in male without diagnosis Surgical History History of biopsy (10/11/23) History of surgery on upper extremity Social History Household Members: Family Housing: House Alcohol intake: never Patient Tobacco Use Status: Never used Tobacco Review of Systems Const Details: Review of Systems Constitutional: Denies fever, chills, weight loss ENT: Denies vision changes, eye pain or eye redness, dental caries, dry mouth GI: Denies nausea, vomiting, diarrhea, abdominal pain, change in BM Pulm: Denies SOB, LOPEZ, hemoptysis, wheezing Cards: Denies chest pain, palpitations Skin: Denies Raynaud's, rash, nail changes, photosensitivity, CLINICAL REVIEW SPECIALIST: Denies headaches, weakness, paresthesias, recurrent falls MSK: as per HPI All other systems reviewed and are unremarkable except noted above Physical Exam Vital Signs: Last Vital Signs Pulse 87 10/03/24 07:26 BP 120/78 10/03/24 07:26 Pulse Ox 98 10/03/24 07:26 Oxygen Delivery Method Room Air 10/03/24 07:26 BMI result Body Mass Index 43.4 Physical Examination CONSTITUITIONAL Patient alert and cooperative. Well appearing and in no apparent painful distress HEENT Conjunctiva and sclera clear. ?Pupils equal round and reactive to light. ?No lymphadenopathy. ?Normal dentition. No oral or nasal ulcers noted. No evidence of discoid rash to the flaca of ears CHEST/RESPIRATORY SYSTEM Normal respiratory effort and able to speak in complete sentences. ?Clear to auscultation bilaterally. ?No crackles, rales, rhonchi, wheezes heard. CARDIAC SYSTEM Regular rate and rhythm. ?S1 and S2 heard no murmurs. ?Radial pulses intact bilaterally MSK Hands: ?Good maple products maker strength bilaterally - 5/5. ?No deformities noted. ?No synovitis noted to the MCPs, PIPs or DIPs. ?No tenderness to palpation of these joints. Wrists: ?Full range of motion at the wrists without pain. ?No tenderness to palpation or synovitis noted to the wrists. Elbows: Full range of motion without pain. No tenderness, weakness, swelling, increased warmth or erythema. Shoulders: Full range of motion without pain. No tenderness, weakness, swelling, increased warmth or erythema. Knees: ?Full range of motion. ?Mild tenderness to palpation of the left 1st MTP but no swelling or erythema noted. Ankles: Full range of motion. ?No tenderness, swelling, increased warmth or erythema.? Feet: ?Negative squeeze test. ?No tenderness to palpation or swelling of the MTPs. Tender points:??No tenderness to palpation of the neck, shoulders, chest, elbows, hips, buttocks or knees. SKIN Skin intact without rashes. No tophi Results Reviewed Results Reviewed: Laboratory Tests 09/05/24 10/01/24 08:50 07:39 WBC 7.5 7.0 RBC 4.95 4.76 Hgb 16.2 15.6 Hct 46.4 43.7 Plt Count 296 269 ESR 8 7 Sodium 139 141 Potassium 4.3 4.0 Chloride 105 104 Carbon Dioxide 27 27 BUN 13 12 Creatinine 0.77 0.83 Uric Acid 8.1 H 7.7 H AST 33 38 H ALT 37 43 H C-Reactive Protein 0.70 H Assessment & Plan Assessment & Plan (1) Idiopathic chronic gout of foot without tophus: Comment: Diagnosed 08/2024 Allopurinol and colchicine started 08/2024 Code(s): M1A.0790 - Idiopathic chronic gout, unspecified ankle and foot, without tophus (tophi) Category: Medical Qualifiers: Laterality: right Qualified Code(s): M1A.0710 - Idiopathic chronic gout, right ankle and foot, without tophus (tophi) Plan: #Non crystal proven non tophaceous gout Uric acid currently not at goal. We will increase allopurinol from 50 mg to 100 mg daily. Continue colchicine. (2) On allopurinol therapy: Code(s): Z79.899 - Other correction (current) drug therapy Category: Medical Plan: #Long-term Current Use of Allopurinol Risks and benefits of allopurinol discussed with patient Benefits include decreased gout flares, remission of gout and reduction of tophi Risks include allopurinol hypersensitivity syndrome which is a severe cutaneous adverse reaction associated with allopurinol use particularly in patients who are HLA B*5801 positive, increased transaminases, GI upset including diarrhea, nausea and vomiting, and other dermatologic manifestations. (3) On colchicine therapy: Code(s): Z79.899 - Other correction (current) drug therapy Category: Medical Plan: #Long-term use of colchicine Risks and benefits of long-term colchicine for the management of this patient's gout discussed with patient. Benefits include reduced occurrence of flares while we titrate and regulate his uric acid on allopurinol and other uric acid lowering medications. ? Risks include worsening myalgias especially if on statins and GI upset including diarrhea Plan I spent 20 minutes reviewing the record and labs, seeing the patient, discussing the treatment plan and documenting in the medical record ? For next visit: review UA Orders: Orders Erythrocyte Sedimentation Rate 3 Months M1A.0710 - Idiopathic chronic gout, right ankle and foot, without tophus (tophi), Z79.899 - Other terminal supervisor (current) drug therapy Uric Acid 3 Months M1A.0710 - Idiopathic chronic gout, right ankle and foot, without tophus (tophi), Z79.899 - Other terminal supervisor (current) drug therapy Complete Blood Count Auto Diff 3 Months M1A.0710 - Idiopathic chronic gout, right ankle and foot, without tophus (tophi), Z79.899 - Other terminal supervisor (current) drug therapy Comprehensive Met. Panel 3 Months M1A.0710 - Idiopathic chronic gout, right ankle and foot, without tophus (tophi), Z79.899 - Other correction (current) drug therapy C Reactive Protein 3 Months M1A.0710 - Idiopathic chronic gout, right ankle and foot, without tophus (tophi), Z79.899 - Other correction (current) drug therapy Medications: Changed From allopurinol 50 mg (1/2 x 100 mg) PO DAILY 90 days 45 tabs 1RF M10.9 - Gout, unspecified, M1A.0710 - Idiopathic chronic gout, right ankle and foot, without tophus (tophi) To allopurinol 100 mg PO DAILY 90 days 90 tabs 1RF M10.9 - Gout, unspecified, M1A.0710 - Idiopathic chronic gout, right ankle and foot, without tophus (tophi) Coding Level of Care Code Est Pt Level 3 (08000) Complex EM visit Add On G2211 Diagnoses Idiopathic chronic gout of right foot without tophus M1A.0710 Laterality: right On allopurinol therapy Z79. On colchicine therapy Z
[2024-10-03 07:26] VITALS: BP 120/78; PULSE 87; O2SAT 98; BMI 43.4
== END 2024-10-03 07:47 | disposition home or self-care (01) ==
LOC: HO.RHE 07:20
PROVIDERS: PCP Internal Medicine; Visit Provider Student in an Organized Health Care Education/Training Program
DX: M1A.0710 Idiopathic chronic gout, right ankle and foot, without tophus (tophi) (principal); Z79.899 Other long term (current) drug therapy
CPT/HCPCS: 99213; G2211

== ENCOUNTER → 2024-10-03 07:20 | Outpatient (BNVA) | payer OTHER, SELFPAY | PROVIDERS: PCP Internal Medicine; Visit Provider Student in an Organized Health Care Education/Training Program | DX: M1A.0710 Idiopathic chronic gout, right ankle and foot, without tophus (tophi) (principal); Z79.899 Other long term (current) drug therapy | CPT/HCPCS: 99212 ==

== ENCOUNTER 2024-12-14 10:28 | Outpatient (REF) | payer OTHER, SELFPAY ==
--- NOTE | ~2024-12-14 | XR_ITS ---
EXAMINATION: XR FOOT 3 OR MORE VIEWS RIGHT HISTORY: M76.60 - Achilles tendinitis, unspecified leg COMPARISON: Comparison is made with the prior examination dated 04/24/2024. FINDINGS: Three views of the right foot are submitted. Osseous mineralization is normal. There is no fracture or dislocation. There is mild degenerative change of the 1st MTP joint with joint space narrowing and osteophyte formation. Again seen is slight lateral subluxation of the 2nd toe at the DIP joint. The soft tissues are unremarkable. XR/XR foot RT min 3V IMPRESSION: Degenerative changes of the right foot as described. Electronically signed by: Leonard June MD 12/17/2024 11:35 AM EST
== END 2024-12-14 10:29 | disposition home or self-care (01) ==
LOC: HO.HMGCX 10:28
PROVIDERS: PCP Internal Medicine; Visit Provider Internal Medicine
DX: M76.61 Achilles tendinitis, right leg (principal)
CPT/HCPCS: 73630; 99212

== ENCOUNTER 2024-12-14 10:28 | Outpatient (AMB) | payer OTHER, SELFPAY ==
[2024-12-14 10:50] VITALS: BP 116/82; PULSE 82; O2SAT 96; BMI 43.0
--- NOTE | 2024-12-14 10:50 | AM.OFFWIN_ITS ---
Intake Vital Signs 3 12/14/24 10:50 Height 6 ft 2 in Weight 335 lb BMI 43.0 BP 116/82 Blood Pressure Location Lt brachial Position Sitting Pulse 82 Pulse Source Pulse Oximeter Pulse Oximetry (%) 96 Oxygen Delivery Method Room Air Intake Visit Reasons: EP-lt heel pain Intake Note: Pt is here today for walk in visit Pt c/o R heel pain since Tuesday. Patient Tobacco Use Status: Never used Tobacco Allergies Iodinated Contrast Media [IV CONTRAST] Allergy (Severe, Verified 12/14/24 10:53) Hives Medication List - Last Reconciled 12/14/24 by Nena Helm MD allopurinol 100 mg PO DAILY 90 days colchicine 0.6 mg PO DAILY 90 days multivitamin 1 tab PO DAILY HPI EP-lt heel pain 2 HPI0 Details Chief Complaint The patient presents with stabbing pain in the back of the right heel. History of Present Illness - The patient is a 49-year-old male pres enting with right heel pain. - Pain commenced suddenly on Tuesday as a stabbing pain in the right heel. - The patient's history of gout is contr olled with colchicine and allopurinol; current episode of heel pain is separate from typical gout attacks. - Uric acid levels recently tested at 8. 1 and 7.7, requiring adjusted medication. - Absence of recent physical exertion re lated to onset of pain. - Initial ibuprofen usage for relief was ineffective. Plan An x-ray of the heel was ordered to rule out bone spurs. Prednisone was prescribed to manage the inflammation associated with diagnosed Achilles tendonitis, considering the ongoing management of gout with colchicine and allopurinol. Instructed on activity modification to aid recovery and scheduled for x-ray at the nearby location. The plan includes assessing the x-ray findings for any future therapeutic adjustments. Patient Instructions - Follow activity restrictions: avoid wa lking extensively and refrain from jumping. - Continue taking prescribed gout medica tions, colchicine, and allopurinol. - Take prednisone along with indomethaci n as prescribed to alleviate inflammation. - Complete the ordered x-ray for further evaluation of heel pain. - Monitor symptoms and report any exacer bation or new symptoms. Review of Systems - Musculoskeletal: Reports stabbing pain in the back of the right heel. Denies prior episodes of similar heel pain. Constitutional: No fever no chills Respiratory: no Cough, no shortness a breath Cardiovascular: no palpitations, no chest pains gastrointestinal: No nausea no vomiting no diarrhea PLANT MACHINIST: No headache no blurring of vision skin: No rash extremities: As per history [facility] Medical History Muscular dystrophy Morbid obesity Concern about STD in male without diagnosis Surgical History History of biopsy (10/11/23) History of surgery on upper extremity Social History Household Members: Family Housing: House Alcohol intake: never Patient Tobacco Use Status: Never used Tobacco Physical Exam Vital Signs: Last Vital Signs Pulse 82 12/14/24 10:50 BP 116/82 12/14/24 10:50 Pulse Ox 96 12/14/24 10:50 Oxygen Delivery Method Room Air 12/14/24 10:50 BMI result Body Mass Index 43.0 Const General: no acute distress Orientation/consciousness: patient oriented x3 Eyes General: appearance normal, both eyes and all related structures Resp Effort & Inspection: normal respiratory effort and able to speak in complete sentences Neuro General: patient oriented x3 Extrem Ankle/foot/toe images: 2 1. Site of pain with pressure, no pain with dorsi flexion or plantar flexion of right foot, neurovascular intact, no inflammation or redness Psych Mental Status: mental status grossly normal Assessment & Plan Assessment & Plan (1) Achilles tendonitis: Code(s): M76.60 - Achilles tendinitis, unspecified leg Qualifiers: Laterality: right Qualified Code(s): M76.61 - Achilles tendinitis, right leg Plan History of Present Illness - The patient is a 49-year-old male presenting with right heel pain. - Pain commenced suddenly on Tuesday morning as a stabbing pain in the right heel. - The patient's history of gout is controlled with colchicine and allopurinol; current episode of heel pain is separate from typical gout attacks. - Uric acid levels recently tested at 8.1 and 7.7, requiring adjusted medication. - Absence of recent physical exertion related to onset of pain. - Initial ibuprofen usage for relief was ineffective. Plan An x-ray of the heel was ordered to rule out bone spurs. Prednisone was prescribed to manage the inflammation associated with diagnosed Achilles tendonitis, considering the ongoing management of gout with colchicine and allopurinol. Instructed on activity modification to aid recovery and scheduled for x-ray at the nearby location. The plan includes assessing the x-ray findings for any future therapeutic adjustments. Patient Instructions - Follow activity restrictions: avoid walking extensively and refrain from jumping. - Continue taking prescribed gout medications, colchicine, and allopurinol. - Take prednisone along with indomethacin as prescribed to alleviate inflammation. - Complete the ordered x-ray for further evaluation of heel pain. - Monitor symptoms and report any exacerbation or new symptoms. Orders: Orders 2 XR foot RT 2V Today M76.60 - Achilles tendinitis, unspecified leg Medications: New 2 indomethacin administer with food or milk 50 mg PO BID 10 caps 0RF prednisone 20 mg PO DAILY 5 days 5 tabs 0RF Coding Level of Care Code Est Pt Level 3 (22069) Diagnoses Achilles tendinitis of right lower extremity M76.61 Laterality: right
== END 2024-12-14 12:09 | disposition home or self-care (01) ==
PROVIDERS: PCP Internal Medicine; Visit Provider Internal Medicine
DX: M76.61 Achilles tendinitis, right leg (principal)

== ENCOUNTER → 2024-12-14 11:09 | Outpatient (BNV) | payer OTHER, SELFPAY | PROVIDERS: PCP Internal Medicine; Visit Provider Radiology Diagnostic Radiology | DX: M19.071 Primary osteoarthritis, right ankle and foot (principal) | CPT/HCPCS: 73630 ==

== ENCOUNTER 2025-01-28 07:55 | Outpatient (REF) | payer OTHER, SELFPAY ==
--- OUTSIDE RECORDS SUMMARY | 2025-01-28 07:59 | XMS_ITS | Referral Summary ---
Author Organization [facility] Address [address] [place] [address] Care Team Providers Care Social Media Marketing Manager Name Role Phone Unknown, Doctor Primary Care Provider Unavailabl e Allergies No known active allergies Medications ibuprofen (MOTRIN) 600 mg tablet Take 600 mg by mouth every 8 hours as needed for pain. 10/11/2023 Active multivitamin (THERAGRAN) tablet Take 1 tablet by mouth once a day. Active Active Problems No known active problems Social History Tobacco Use Types Packs/Day Years Used Date Smoking Tobacco: Never Smokeless Tobacco: Never Tobacco Cessation:Counseling Given: Not Answered Alcohol Use Standard Drinks/Week Comments Yes 0 (1 standard drink = 0.6 oz pur e alcohol) TWICE IN A YEAR Sex and Gender Information Value Date Recorded Sex Assigned at Male 11/11/2023 3:24 PM EST Legal Sex Male 4:11 PM EDT Gender Identity Male 11/11/2023 3:24 PM EST Sexual Orientation Straight 11/11/2023 3: 24 PM EST Last Filed Vital Signs Vital Sign Reading Time Taken Comments Blood Pressure 122/80 07/19/2024 3:11 PM EDT Pulse 92 07/19/2024 3:11 PM EDT Temperature 36.3 ??C (97.3 ??F) 07/19/2024 3:11 PM ED T Respiratory Rate 18 07/19/2024 3:11 PM EDT Oxygen Saturation - - Inhaled Oxygen Concentration - - Weight 149.2 kg (329 lb) 07/19/2024 3:11 PM EDT Height 188 cm (6' 2 ) 11/10/2023 12:34 PM EST Body Mass Index 42.24 11/10/2023 12:34 PM EST Plan of Treatment Upcoming Encounters Date Type Department Care Team (Late st Contact Info) Description 02/14/2025 2:45 PM EDT Office Visit [facility] [address] [place] [address] Quan Vivar MD [address] [facility] [place] [address] Insurance [facility] MEDICAID Care Teams Social Media Marketing Manager Relationship Specialty Start Date End Date Unknown, Doctor Unknown Unknown, WILLEM PCP - General 11/10/23
--- OUTSIDE RECORDS SUMMARY | 2025-01-28 07:59 | XMS_ITS | Clinical Summary ---
Author Organization [facility] Address [address] [place] [address] Care Team Providers Care Dice Manager Name Role Phone Unknown, Doctor Primary Care Provider Unavailabl e Allergies No known active allergies Medications ibuprofen (MOTRIN) 600 mg tablet Take 600 mg by mouth every 8 hours as needed for pain. 10/11/2023 Active multivitamin (THERAGRAN) tablet Take 1 tablet by mouth once a day. Active Active Problems No known active problems Family History Relation Name Status Comments Father Alive Mother Alive Social History Tobacco Use Types Packs/Day Years [...] Description 02/14/2025 2:45 PM EDT Office Visit [facility] [address] [place] [address] Quan Vivar MD [address] [facility] [place] [address] Health Maintenance Due Date Last Done Comments Cologuard 1974 Colon Cancer Screening 1974 Colonoscopy 1974 FOBT / Fit Test 1974 HIV Screening 1974 Hepatitis C Screening 1974 Sigmoidoscopy 1974 DTaP,Tdap,and Td Vaccines (2 - Td or Tdap) 09/02/2021 09/02/2011 COVID-19 Vaccine (4 - 2023-2 5 season) 2024 10/26/2021, 03/20/2021, 02/18/2021 Influenza Vaccine (#1) 2024 , 10/30/2019, 10/05/2019, Additional history exists Pneumococcal Vaccine: 50+ Ye ars (1 of 1 - PCV) 2024 Zoster Vaccines (1 of 2) 2024 Alcohol/Substance Use Screening 11/28/2024 Depression Screening and Follow-Up 11/28/2024 Social Drivers of Health Maryam ual Screening 11/28/2024 RSV Vaccine (60+ years old a nd patients) (1 - 1-dose 75+ series) 2049 Hepatitis B Vaccines Completed 09/03/2020, 03/05/2020, 01/30/2020 Insurance [facility] MEDICAID Care Teams Dice Manager Relationship Specialty Start Date End Date Unknown, Doctor Unknown Unknown, WILLEM PCP - General 11/10/23
[2025-01-28 10:16] LABS: MANUAL DIFF FLAG NO
[2025-01-28 10:17] LABS: Basophils Absolute Auto 0.1 X10*3/uL (0.0-0.2); Eosinophils Absolute Auto 0.3 X10*3/uL (0.0-0.4); Eosinophils Percent Auto 3.3 % (0-4); Hematocrit 45.2 % (42.0-52.0); Hemoglobin 15.9 g/dl (14.0-18.0); Imm Gran Abs Auto 0.02 X10*3/uL (0.00-0.03); Imm Gran Pct Auto 0.3 % (0.0-0.4); Mean Corpuscular HGB Conc 35.2 g/dl (31.0-36.0); Mean Corpuscular Hemoglobin 32.6 pg (27.0-33.0); Mean Corpuscular Volume 92.6 fL (80.0-98.0); Mean Platelet Volume 9.4 fL (9.4-12.4); Monocytes Absolute Auto 0.9 X10*3/uL (0.1-1.2); Monocytes Percent Auto 10.7 % (2-11); Neutrophils Absolute Auto 4.7 x10*3/uL (2.0-8.3); Neutrophils Percent Auto 59.7 % (45-73); Platelet Count 256 X10*3/uL (160-400); Red Blood Count 4.88 X10*6/uL (4.60-5.80); Red Cell Distribution Width 12.8 % (11.0-16.0); White Blood Count 7.9 X10*3/uL (4.8-10.8)
[2025-01-28 10:40] LABS: Alanine Aminotransferase 44 U/L (0-40); Albumin Level 4.4 g/dL (3.5-5.0); Alkaline Phosphatase 85 U/L (39-117); Anion Gap 14 (12-20); Aspartate Amino Transferase 37 U/L (5-37); Bilirubin Total 0.6 mg/dL (0.0-1.0); Blood Urea Nitrogen 14 mg/dL (9-16); C Reactive Protein 0.39 mg/dL (< or = 0.50); Calcium 9.3 mg/dL (8.4-10.2); Carbon Dioxide 25 mmol/L (22-29); Chloride 105 mmol/L (96-108); Estimated Glomerular Filt Rate > 60; Glucose Random 93 mg/dL (60-115); Potassium 4.1 mmol/L (3.3-5.1); Sodium 140 mmol/L (135-145); Total Protein 8.1 g/dL (6.5-8.0)
[2025-01-28 10:58] LABS: Uric Acid 7.5 mg/dL (3.4-7.0)
[2025-01-28 11:09] LABS: Erythrocyte Sedimentation Rate 6 MM/HR (0-15)
== END 2025-01-28 07:56 | disposition home or self-care (01) ==
LOC: HO.10HDL 07:55
PROVIDERS: Visit Provider Student in an Organized Health Care Education/Training Program
DX: M76.61 Achilles tendinitis, right leg (principal); M1A.0710 Idiopathic chronic gout, right ankle and foot, without tophus (tophi); Z79.899 Other long term (current) drug therapy
CPT/HCPCS: 36415; 80053; 84550; 85025; 85652; 86140; 99202

== ENCOUNTER 2025-01-28 08:34 | Outpatient (AMB) | payer OTHER, SELFPAY ==
--- OUTSIDE RECORDS SUMMARY | 2025-01-28 08:59 | XMS_ITS | Clinical Summary ---
Author Organization [facility] Address [address] [place] [address] Care Team Providers Care Order Takers Supervisor Name Role Phone Unknown, Doctor Primary Care [...] Description 02/14/2025 2:45 PM EDT Office Visit [facility] [address] [place] [address] Quan Vivar MD 55 [facility] [place] [address] Health Maintenance Due Date Last Done Comments [...] B Vaccines Completed 09/03/2020, 03/05/2020, 01/30/2020 Insurance [facility] MEDICAID Care Teams Order Takers Supervisor Relationship Specialty Start Date End Date Unknown, Doctor Unknown Unknown, WILLEM PCP - General 11/10/23
--- OUTSIDE RECORDS SUMMARY | 2025-01-28 08:59 | XMS_ITS | Referral Summary ---
Author Organization [facility] Address [address] [place] [address] Care Team Providers Care Preparation Center Coordinator Name Role Phone Unknown, Doctor Primary Care [...] Description 02/14/2025 2:45 PM EDT Office Visit [facility] [address] [place] [address] Quan Vivar MD 55 [facility] [place] [address] Insurance [facility] MEDICAID Care Teams Preparation Center Coordinator Relationship Specialty Start Date End Date Unknown, Doctor Unknown Unknown, WILLEM PCP - General 11/10/23
--- NOTE | 2025-01-28 09:08 | MHC.OFFWIV ---
Intake Vital Signs 01/28/25 09:09 Height 6 ft 2 in Weight 333 lb BMI 42.7 BP 130/80 Blood Pressure Location Lt brachial Position Sitting Pulse 80 Pulse Source Pulse Oximeter Pulse Oximetry (%) 95 Oxygen Delivery Method Room Air Intake Visit Reasons: EP plantar fasciitis flare Intake Note: Patient here for right achiles pain that has been present for a while now but flared up last night. Patient Tobacco Use Status: Never used Tobacco Allergies Iodinated Contrast Media [IV CONTRAST] Allergy (Severe, Verified 01/28/25 09:11) Hives Do you need a note to return to daycare/school/sports/work: No HPI HPI Comments History of Present Illness Details History of Present Illness - The patient is a 49-year-old male presenting with recurrent pain in the right Achilles tendon and plantar fasciitis. - Pain onset occurred at 2:30 AM, characterized by throbbing consistent with previous Achilles tendon episodes. - Initial treatment included a three-day regimen of prednisone and indomethacin, resulting in partial symptom relief. - Pain recurrence noted following initial treatment's conclusion; unlikely complete resolution was achieved. - Managed on medications for gout including colchicine and allopurinol, which are effective in controlling his condition. - Suggests some improvement with indomethacin use and reports no gastrointestinal issues/bleeding history. - Pain reported as particularly not severe, but persistent and troublesome. - Current discomfort is likely exacerbated by physical activity, with mitigation through rest and icing. Physical Exam General: Cooperative, healthy appearing, comfortable, no acute distress and well developed Orientation: Patient oriented x3 Limitations: No limitations Head: Normal to inspection Ears: Hearing grossly normal bilaterally Nose: Normal external nose present Face and sinus: Normal facial exam Eyes: Appearance normal, both eyes and all related structures Neck: Normal visual inspection and Yes full ROM Respiratory: Normal respiratory effort and able to speak in complete sentences. Skin: No rashes or lesions noted Neuro: Patient oriented x3 Extremities: Tenderness noted at the insertion point of the Achilles tendon, otherwise normal to inspection [facility] Medical History Muscular dystrophy Morbid obesity Concern about STD in male without diagnosis Surgical History History of biopsy (10/11/23) History of surgery on upper extremity Social History Household Members: Family Housing: House Alcohol intake: never Patient Tobacco Use Status: Never used Tobacco Review of Systems Const All systems reviewed & are unremarkable except as noted in HPI and below Physical Exam Vital Signs: Last Vital Signs Pulse 80 01/28/25 09:09 BP 130/80 01/28/25 09:09 Pulse Ox 95 01/28/25 09:09 Oxygen Delivery Method Room Air 01/28/25 09:09 BMI result Body Mass Index 42.7 Assessment & Plan Assessment & Plan (1) Achilles tendonitis: Code(s): M76.60 - Achilles tendinitis, unspecified leg Qualifiers: Laterality: right Qualified Code(s): M76.61 - Achilles tendinitis, right leg Plan: I will prescribe prednisone at 20 mg daily for five days and indomethacin every 12 hours with food as they were previously effective in managing inflammation and pain from Achilles tendinitis. After this course, the patient can transition to naproxen as needed for ongoing anti-inflammatory management. I recommend using shoe inserts to alleviate tendon strain and continuing icing the affected area to control inflammation. The patient is advised to minimize activities that may trigger symptoms and monitor for any potential adverse effects, particularly gastrointestinal, due to the medications. Patient was informed and verbally consented to the use of an ambient scribe for clinic note documentation during this visit. Medications: New prednisone 20 mg PO QAM 5 tabs 0RF indomethacin administer with food or milk 50 mg PO Q12H 5 days 10 caps 0RF Coding Level of Care Code New Pt Level 3 (55400) Diagnoses Achilles tendinitis of right lower extremity M76.61 Laterality: right
[2025-01-28 09:09] VITALS: BP 130/80; PULSE 80; O2SAT 95; BMI 42.7
== END 2025-01-28 09:37 | disposition home or self-care (01) ==
PROVIDERS: PCP Internal Medicine; Visit Provider Physician Assistant
DX: M76.61 Achilles tendinitis, right leg (principal)

== ENCOUNTER 2025-01-30 07:28 | Outpatient (AMB) | payer OTHER, SELFPAY ==
--- OUTSIDE RECORDS SUMMARY | 2025-01-30 07:31 | XMS_ITS | Referral Summary ---
Author Organization [facility] Address [address] [place] [address] Care Team Providers Care Behavioral Health Aide Name Role Phone Unknown, Doctor Primary Care [...] Description 02/14/2025 2:45 PM EDT Office Visit [facility] [address] [place] [address] Quan Vivar MD 55 [facility] [place] [address] Insurance [facility] [place] [address] Care Teams Behavioral Health Aide Relationship Specialty Start Date End Date Unknown, Doctor Unknown Unknown, WILLEM PCP - General 11/10/23
--- OUTSIDE RECORDS SUMMARY | 2025-01-30 07:31 | XMS_ITS | Clinical Summary ---
Author Organization [facility] Address [address] [place] [address] Care Team Providers Care Leather Novelty Parts Cutter Name Role Phone Unknown, Doctor Primary Care [...] Description 02/14/2025 2:45 PM EDT Office Visit [facility] [address] [place] [address] Quan Vivar MD 55 [facility] [place] [address] Health Maintenance Due Date Last Done Comments [...] B Vaccines Completed 09/03/2020, 03/05/2020, 01/30/2020 Insurance [facility] MEDICAID Care Teams Leather Novelty Parts Cutter Relationship Specialty Start Date End Date Unknown, Doctor Unknown Unknown, WILLEM PCP - General 11/10/23
--- NOTE | 2025-01-30 07:34 | A.OFFVIS_ITS ---
Vital Signs 01/30/25 07:38 Height 6 ft 2 in Weight 347 lb 14.231 oz BMI 44.7 BP 120/82 Blood Pressure Location Lt brachial Position Sitting Pulse 80 Pulse Source Pulse Oximeter Pulse Oximetry (%) 94 Oxygen Delivery Method Room Air Intake Visit Reasons: follow up Intake Note: Patient presents for follow up. Allergies Iodinated Contrast Media [IV CONTRAST] Allergy (Severe, Verified 01/30/25 07:37) Hives Medication List - Last Reconciled 01/30/25 by Sury Brooke MD allopurinol 100 mg PO DAILY 90 days colchicine 0.6 mg PO DAILY 90 days indomethacin 50 mg PO Q12H 5 days multivitamin 1 tab PO DAILY prednisone 20 mg PO QAM HPI Comments Details: Patient is a 48-year-old male with muscular dystrophy who presents for follow-up for non tophaceous non crystal proven gout. Interval History: Patient last seen 10/03/2024. At that time he was following up for his gout. Uric acid was not goal and so his allopurinol was increased. He had no further gout flares Today he reports he is doing well. Has not had any further gout attacks since the last visit. 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 Started on allopurinol 08/2024 Current Rheumatology Medication(s): Allopurinol 100mg Colchicine 0.6mg PFSH Medical History Muscular dystrophy Morbid obesity Concern about STD in male without diagnosis Surgical History History of biopsy (10/11/23) History of surgery on upper extremity Social History Household Members: Family Housing: House Alcohol intake: never Patient Tobacco Use Status: Never used Tobacco Review of Systems Const Details: Review of Systems Constitutional: Denies fever, chills, weight loss ENT: Denies vision changes, eye pain or eye redness, dental caries, dry mouth GI: Denies nausea, vomiting, diarrhea, abdominal pain, change in BM Pulm: Denies SOB, LOPEZ, hemoptysis, wheezing Cards: Denies chest pain, palpitations Skin: Denies Raynaud's, rash, nail changes, photosensitivity, EXTERMINATOR: Denies headaches, weakness, paresthesias, recurrent falls MSK: as per HPI All other systems reviewed and are unremarkable except noted above Physical Exam Vital Signs: Last Vital Signs Pulse 80 01/30/25 07:38 BP 120/82 01/30/25 07:38 Pulse Ox 94 01/30/25 07:38 Oxygen Delivery Method Room Air 01/30/25 07:38 BMI result Body Mass Index 44.7 Vital signs reviewed Physical Examination CONSTITUITIONAL Patient alert and cooperative. Well appearing and in no apparent painful distress HEENT Conjunctiva and sclera clear. ?Pupils equal round and reactive to light. ?No lymphadenopathy. ? CHEST/RESPIRATORY SYSTEM Normal respiratory effort and able to speak in complete sentences. ?Clear to auscultation bilaterally. ?No crackles, rales, rhonchi, wheezes heard. CARDIAC SYSTEM Regular rate and rhythm. ?S1 and S2 heard no murmurs. ?Radial pulses intact bilaterally MSK Hands: ?Good paint pourer strength bilaterally. No deformities noted. ?No synovitis noted to the MCPs, PIPs or DIPs. ?No tenderness to palpation of these joints. Wrists: ?Full range of motion at the wrists without pain. ?No tenderness to palpation or synovitis noted to the wrists. Elbows: Full range of motion without pain. No tenderness, weakness, swelling, increased warmth or erythema. Shoulders: Active and passive range of motion of the shoulders is restricted to 90 degrees secondary to his underlying muscle dystrophy. No tenderness to palpation or positive rotator cuff impingement maneuvers. Hips: Full range of motion without pain. Hip bursa: No tenderness to palpation Knees: ?Full range of motion. ?No tenderness, swelling, increased warmth or erythema.? Bilateral crepitations felt Ankles: Full range of motion. ?No tenderness, swelling, increased warmth or erythema.? Feet: ?Negative squeeze test. ?No tenderness to palpation or swelling of the MTPs. Tender points:?No tenderness to palpation of the bilateral trapezius, supraspinatus, greater trochanters, anterior costochondral junctions, bilateral gluteal areas, bilateral suboccipital muscle insertions SKIN Skin intact without rashes. No tophi noted Results Reviewed Results Reviewed: Laboratory Tests 09/05/24 10/01/2401/28/25 08:50 07:39 08:06 WBC 7.9 RBC 4.88 Hgb 15.9 Hct 45.2 Plt Count 256 ESR 6 Sodium 140 Potassium 4.1 Chloride 105 Carbon Dioxide 25 BUN 14 Creatinine 0.74 Uric Acid 8.1 H 7.7 H 7.5 H Total Bilirubin 0.6 AST 37 ALT 44 H Alkaline Phosphatase 85 C-Reactive Protein 0.70 H 0.39 Total Protein 8.1 H Albumin 4.4 Assessment & Plan Assessment & Plan (1) Idiopathic chronic gout of foot without tophus: Comment: Diagnosed 08/2024 Allopurinol and colchicine started 08/2024 Code(s): M1A.0790 - Idiopathic chronic gout, unspecified ankle and foot, without tophus (tophi) Category: Medical Qualifiers: Laterality: right Qualified Code(s): M1A.0710 - Idiopathic chronic gout, right ankle and foot, without tophus (tophi) Plan: #Non crystal proven non tophaceous gout Patient is a 49-year-old male with muscular dystrophy here to for follow up of non crystal proven non tophaceous gout. Uric acid currently not at goal. We will increase allopurinol from 100mg to 300mg daily. Continue colchicine. Plan - Increase allopurinol to 300mg daily - Goal uric acid 4-6 - Continue colchcine 0.6mg daily for gout prophylaxis - RTC 3 months - Labs before visit: CBC, CMP, ESR, CRP, UA (2) On allopurinol therapy: Code(s): Z79.899 - Other residential (current) drug therapy Category: Medical Plan: #Long-term Current Use of Allopurinol Risks and benefits of allopurinol discussed with patient Benefits include decreased gout flares, remission of gout and reduction of tophi Risks include allopurinol hypersensitivity syndrome which is a severe cutaneous adverse reaction associated with allopurinol use particularly in patients who are HLA B*5801 positive, increased transaminases, GI upset including diarrhea, nausea and vomiting, and other dermatologic manifestations. (3) On colchicine therapy: Code(s): Z79.899 - Other residential (current) drug therapy Category: Medical Plan: #Long-term use of colchicine Risks and benefits of long-term colchicine for the management of this patient's gout discussed with patient. Benefits include reduced occurrence of flares while we titrate and regulate his uric acid on allopurinol and other uric acid lowering medications. ? Risks include worsening myalgias especially if on statins and GI upset including diarrhea Plan I spent 20 minutes reviewing the record and labs, seeing the patient, discussing the treatment plan and documenting in the medical record Orders: Orders Complete Blood Count Auto Diff 3 Months M1A.0710 - Idiopathic chronic gout, right ankle and foot, without tophus (tophi), Z79.899 - Other residential (current) drug therapy Comprehensive Met. Panel 3 Months M1A.0710 - Idiopathic chronic gout, right ankle and foot, without tophus (tophi), Z79.899 - Other terminal computer operator (current) drug therapy C Reactive Protein 3 Months M1A.0710 - Idiopathic chronic gout, right ankle and foot, without tophus (tophi), Z79.899 - Other terminal computer operator (current) drug therapy Erythrocyte Sedimentation Rate 3 Months M1A.0710 - Idiopathic chronic gout, right ankle and foot, without tophus (tophi), Z79.899 - Other residential (current) drug therapy Uric Acid 3 Months M1A.0710 - Idiopathic chronic gout, right ankle and foot, without tophus (tophi), Z79.899 - Other terminal computer operator (current) drug therapy Medications: Changed From allopurinol 100 mg PO DAILY 90 days 90 tabs 1RF M10.9 - Gout, unspecified, M1A.0710 - Idiopathic chronic gout, right ankle and foot, without tophus (tophi) To allopurinol 300 mg PO DAILY 90 tabs 1RF 90 days M10.9 - Gout, unspecified, M1A.0710 - Idiopathic chronic gout, right ankle and foot, without tophus (tophi) Refilled colchicine 0.6 mg PO DAILY 90 tabs 1RF 90 days M10.9 - Gout, unspecified, M1A.0710 - Idiopathic chronic gout, right ankle and foot, without tophus (tophi) Coding Level of Care Code Est Pt Level 4 (13972) Complex EM visit Add On G2211 Diagnoses Idiopathic chronic gout of right foot without tophus M1A.0710 Laterality: right On allopurinol therapy Z79.899 On colchicine therapy Z
[2025-01-30 07:38] VITALS: BP 120/82; PULSE 80; O2SAT 94; BMI 44.7
== END 2025-01-30 07:55 | disposition home or self-care (01) ==
PROVIDERS: PCP Internal Medicine; Visit Provider Student in an Organized Health Care Education/Training Program
DX: M1A.0710 Idiopathic chronic gout, right ankle and foot, without tophus (tophi) (principal); Z79.899 Other long term (current) drug therapy
CPT/HCPCS: 99214; G2211

== ENCOUNTER → 2025-01-30 07:28 | Outpatient (BNVA) | payer OTHER, SELFPAY | PROVIDERS: PCP Internal Medicine; Visit Provider Student in an Organized Health Care Education/Training Program | DX: M1A.0710 Idiopathic chronic gout, right ankle and foot, without tophus (tophi) (principal); Z79.899 Other long term (current) drug therapy | CPT/HCPCS: 99212 ==

== ENCOUNTER 2025-04-26 08:05 | Outpatient (REF) | payer OTHER, SELFPAY ==
--- OUTSIDE RECORDS SUMMARY | 2025-04-26 08:07 | XMS_ITS | Encounter Summary ---
Author Organization [facility] Address [address] [place] [address] Care Team Providers Care Adobe Layer Name Role Phone Melissa Michel Primary Care Provider [phone] Reason for Visit * Reason Onset Date Comments PAC Appt Request - Established 04/18/2025 Encounter Details Date Type Department Care Team (Late st Contact Info) Description 04/18/2025 Telephone [facility] [address] [place] [id number] Matchbook Maker: Misti Cao Telephone Intake, Staff PAC Appt Request - Established Social History Tobacco Use Types Packs/Day Years Used Date Smoking Tobacco: Never Smokeless Tobacco: Never Alcohol Use Standard Drinks/Week Comments Yes 0 (1 standard drink = 0.6 oz pur e alcohol) TWICE IN A YEAR Sex and Gender Information Value Date Recorded Sex Assigned at Male 11/11/2023 3:24 PM EST Legal Sex Male 4:11 PM EDT Gender Identity Male 11/11/2023 3:24 PM EST Sexual Orientation Straight 11/11/2023 3: 24 PM EST documented as of this encounter Miscellaneous Notes * Telephone Encounter - Makenna Sterling - 04/24/2025 9:10 AM EDT Left vm 5.28.25 * Telephone Encounter - Melissa Herrera - 04/18/2025 9:47 AM EDT Spoke with patient to schedule appt for Muscular Dystrophy unable to schedule through DT. Please advise to patient appt date and time documented in this encounter Plan of Treatment Upcoming Encounters Date Type Department Care Team (Late st Contact Info) Description 09/12/2025 2:45 PM EDT Office Visit [facility] [address] [place] [address] Keturah Siddiqui MD [address] [place] [phone] 01/06/2026 1:00 PM EST Telehealth [facility] [address] [place] [address] Matchbook Maker: Juan Ramon Lynch MD PhD [address] [place] [phone] documented as of this encounter Visit Diagnoses Not on filedocumented in this encounter Care Teams Adobe Layer Relationship Specialty Start Date End Date Melissa Michel [address] [place] [phone] PCP - General Internal Medicine 04/18/25 documented as of this encounter
[2025-04-26 10:36] LABS: MANUAL DIFF FLAG NO
[2025-04-26 11:23] LABS: Basophils Absolute Auto 0.1 X10*3/uL (0.0-0.2); Basophils Percent Auto 0.9 % (0-2); Eosinophils Absolute Auto 0.2 X10*3/uL (0.0-0.4); Eosinophils Percent Auto 2.8 % (0-4); Hematocrit 47.2 % (42.0-52.0); Hemoglobin 16.2 g/dl (14.0-18.0); Imm Gran Abs Auto 0.02 X10*3/uL (0.00-0.03); Imm Gran Pct Auto 0.3 % (0.0-0.4); Lymphocytes Percent Auto 27.2 % (20-40); Mean Corpuscular HGB Conc 34.3 g/dl (31.0-36.0); Mean Corpuscular Hemoglobin 32.2 pg (27.0-33.0); Mean Corpuscular Volume 93.8 fL (80.0-98.0); Mean Platelet Volume 9.6 fL (9.4-12.4); Monocytes Absolute Auto 0.9 X10*3/uL (0.1-1.2); Monocytes Percent Auto 12.5 % (2-11); Neutrophils Absolute Auto 4.2 x10*3/uL (2.0-8.3); Neutrophils Percent Auto 56.3 % (45-73); Platelet Count 305 X10*3/uL (160-400); Red Blood Count 5.03 X10*6/uL (4.60-5.80); Red Cell Distribution Width 12.9 % (11.0-16.0); White Blood Count 7.5 X10*3/uL (4.8-10.8)
[2025-04-26 11:41] LABS: Alanine Aminotransferase 53 U/L (0-40); Albumin Level 4.6 g/dL (3.5-5.0); Alkaline Phosphatase 88 U/L (39-117); Anion Gap 15 (12-20); Aspartate Amino Transferase 43 U/L (5-37); Bilirubin Total 0.8 mg/dL (0.0-1.0); Blood Urea Nitrogen 16 mg/dL (9-16); C Reactive Protein 0.45 mg/dL (< or = 0.50); Calcium 9.7 mg/dL (8.4-10.2); Carbon Dioxide 25 mmol/L (22-29); Chloride 105 mmol/L (96-108); Estimated Glomerular Filt Rate > 60; Glucose Random 93 mg/dL (60-115); Potassium 4.3 mmol/L (3.3-5.1); Sodium 141 mmol/L (135-145); Total Protein 7.7 g/dL (6.5-8.0); Uric Acid 7.5 mg/dL (3.4-7.0)
[2025-04-26 12:05] LABS: Erythrocyte Sedimentation Rate 8 MM/HR (0-15)
== END 2025-04-26 08:06 | disposition home or self-care (01) ==
LOC: HO.10HDL 08:05
PROVIDERS: Visit Provider Student in an Organized Health Care Education/Training Program
DX: M1A.0710 Idiopathic chronic gout, right ankle and foot, without tophus (tophi) (principal); Z79.899 Other long term (current) drug therapy
CPT/HCPCS: 36415; 80053; 84550; 85025; 85652; 86140

== ENCOUNTER 2025-04-30 08:03 | Outpatient (AMB) | payer OTHER, SELFPAY ==
--- NOTE | 2025-04-30 08:05 | MHC.OFFVIS ---
Vital Signs 04/30/25 08:08 Height 6 ft 2 in Weight 330 lb 14.621 oz BMI 42.5 BP 132/80 Blood Pressure Location Rt brachial Position Sitting Pulse 85 Pulse Source Pulse Oximeter Pulse Oximetry (%) 95 Oxygen Delivery Method Room Air Intake Visit Reasons: follow up Intake Note: Patient presents for Gout follow up. Allergies Iodinated Contrast Media [IV CONTRAST] Allergy (Severe, Verified 04/30/25 08:07) Hives Medication List - Last Reconciled 04/30/25 by Sury Brooke MD allopurinol 300 mg PO DAILY 90 days colchicine 0.6 mg PO DAILY 90 days indomethacin 50 mg PO Q12H 5 days multivitamin 1 tab PO DAILY HPI Comments Details: Patient is a 48-year-old male with muscular dystrophy who presents for follow-up for non tophaceous non crystal proven gout. Interval History: Patient last seen 01/30/2025 with me. At that time he was following up for his non tophaceous non crystal proven gout on allopurinol 100 mg. He was having Achilles tendonitis as well at that time for which she was on prednisone as well as his prophylactic colchicine. Uric acid was not at goal and so his allopurinol was increased to 300mg. 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 Started on allopurinol 08/2024 Current Rheumatology Medication(s): Allopurinol 300mg (currently taking 100mg) Colchicine 0.6mg PFSH Medical History Muscular dystrophy Morbid obesity Concern about STD in male without diagnosis Surgical History History of biopsy (10/11/23) History of surgery on upper extremity Social History Household Members: Family Housing: House Alcohol intake: never Patient Tobacco Use Status: Never used Tobacco Review of Systems Const Details: Review of Systems Constitutional: Denies fever, chills, weight loss ENT: Denies vision changes, eye pain or eye redness, dental caries, dry mouth GI: Denies nausea, vomiting, diarrhea, abdominal pain, change in BM Pulm: Denies SOB, LOPEZ, hemoptysis, wheezing Cards: Denies chest pain, palpitations Skin: Denies Raynaud's, rash, nail changes, photosensitivity, QA DEVELOPER: Denies headaches, weakness, paresthesias, recurrent falls MSK: as per HPI All other systems reviewed and are unremarkable except noted above Physical Exam Vital Signs: Last Vital Signs Pulse 85 04/30/25 08:08 BP 132/80 04/30/25 08:08 Pulse Ox 95 04/30/25 08:08 Oxygen Delivery Method Room Air 04/30/25 08:08 BMI result Body Mass Index 42.5 Vital signs reviewed Physical Examination CONSTITUITIONAL Patient alert and cooperative. Well appearing and in no apparent painful distress HEENT Conjunctiva and sclera clear. ?Pupils equal round and reactive to light. ?No lymphadenopathy. ? CHEST/RESPIRATORY SYSTEM Normal respiratory effort and able to speak in complete sentences. ?Clear to auscultation bilaterally. ?No crackles, rales, rhonchi, wheezes heard. CARDIAC SYSTEM Regular rate and rhythm. ?S1 and S2 heard no murmurs. ?Radial pulses intact bilaterally MSK Hands: ?Good dramatic agent strength bilaterally. No deformities noted. ?No synovitis noted to the MCPs, PIPs or DIPs. ?No tenderness to palpation of these joints. Wrists: ?Full range of motion at the wrists without pain. ?No tenderness to palpation or synovitis noted to the wrists. Elbows: Full range of motion without pain. No tenderness, weakness, swelling, increased warmth or erythema. Shoulders: Active and passive range of motion of the shoulders is restricted to 90 degrees secondary to his underlying muscle dystrophy. No tenderness to palpation or positive rotator cuff impingement maneuvers. Hips: Full range of motion without pain. Hip bursa: No tenderness to palpation Knees: ?Full range of motion. ?No tenderness, swelling, increased warmth or erythema.? Bilateral crepitations felt Ankles: Full range of motion. ?No tenderness, swelling, increased warmth or erythema.? Feet: ?Negative squeeze test. ?No tenderness to palpation or swelling of the MTPs. Tender points:?No tenderness to palpation of the bilateral trapezius, supraspinatus, greater trochanters, anterior costochondral junctions, bilateral gluteal areas, bilateral suboccipital muscle insertions SKIN Skin intact without rashes. No tophi noted Results Reviewed Results Reviewed: Laboratory Tests 04/26/25 08:08 WBC 7.5 RBC 5.03 Hgb 16.2 Hct 47.2 Plt Count 305 ESR 8 Sodium 141 Potassium 4.3 Chloride 105 Carbon Dioxide 25 BUN 16 Creatinine 0.73 Uric Acid 7.5 H AST 43 H ALT 53 H C-Reactive Protein 0.45 Total Protein 7.7 Albumin 4.6 Assessment & Plan Assessment & Plan (1) Idiopathic chronic gout of foot without tophus: Comment: Diagnosed 08/2024 Allopurinol and colchicine started 08/2024 Code(s): M1A.0790 - Idiopathic chronic gout, unspecified ankle and foot, without tophus (tophi) Category: Medical Qualifiers: Laterality: right Qualified Code(s): M1A.0710 - Idiopathic chronic gout, right ankle and foot, without tophus (tophi) Plan: #Non crystal proven non tophaceous gout Patient is a 49-year-old male with muscular dystrophy here to for follow up of non crystal proven non tophaceous gout. Uric acid currently not at goal. Did not start allopurinol 300 because he wanted to finish the 100 mg tablets at home. Recently picked up a 300 mg prescription. We will have him take 300 mg daily for the next 3 months and then follow up. If there is no improvement in his uric acid we will need to check urine studies for uric acid excretion. Continue colchicine. 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 Benefits include reduced occurrence of flares while we titrate and regulate his uric acid on allopurinol and other uric acid lowering medications. ? Risks include worsening myalgias especially if on statins and GI upset including diarrhea Plan I spent 20 minutes reviewing the record and labs, seeing the patient, discussing the treatment plan and documenting in the medical record Orders: Orders Uric Acid 3 Months M1A.0710 - Idiopathic chronic gout, right ankle and foot, without tophus (tophi) Complete Blood Count Auto Diff 3 Months M1A.0710 - Idiopathic chronic gout, right ankle and foot, without tophus (tophi) Comprehensive Met. Panel 3 Months M1A.0710 - Idiopathic chronic gout, right ankle and foot, without tophus (tophi) C Reactive Protein 3 Months M1A.0710 - Idiopathic chronic gout, right ankle and foot, without tophus (tophi) Erythrocyte Sedimentation Rate 3 Months M1A.0710 - Idiopathic chronic gout, right ankle and foot, without tophus (tophi) Coding Level of Care Code Est Pt Level 3 (42114) Complex EM visit Add On G2211 Diagnoses Idiopathic chronic gout of right foot without tophus M1A.0710 Laterality: right On allopurinol therapy Z79.899 On colchicine therapy Z79.899
--- OUTSIDE RECORDS SUMMARY | 2025-04-30 08:06 | XMS_ITS | Encounter Summary ---
Author Organization [facility] Address [address] [place] [address] Care Team Providers Care Capacity Planner Name Role Phone Melissa Michel Primary Care Provider Reason for Visit * Reason Onset Date Comments PAC Appt Request - Established 04/18/2025 Encounter Details Date Type Department Care Team (Late st Contact Info) Description 04/18/2025 Telephone [facility] [address] [place] [address] Fire Prevention Officer: Misti Cao Telephone Intake, Staff PAC Appt [...] Description 09/12/2025 2:45 PM EDT Office Visit [facility] [address] [place] [address] Keturah Siddiqui MD [address] [place] [address] 01/06/2026 1:00 PM EST Telehealth [facility] [address] [place] [address] Fire Prevention Officer: Juan Ramon Lynch MD PhD [address] [place] [address] documented as of this encounter Visit Diagnoses Not on filedocumented in this encounter Care Teams Capacity Planner Relationship Specialty Start Date End Date Melissa Michel [address] [place] [id number] PCP - General Internal Medicine 04/18/25 documented as of this encounter
[2025-04-30 08:08] VITALS: BP 132/80; PULSE 85; O2SAT 95; BMI 42.5
== END 2025-04-30 08:24 | disposition home or self-care (01) ==
LOC: HO.RHE 08:03
PROVIDERS: PCP Internal Medicine; Visit Provider Student in an Organized Health Care Education/Training Program
DX: M1A.0710 Idiopathic chronic gout, right ankle and foot, without tophus (tophi) (principal); Z79.899 Other long term (current) drug therapy
CPT/HCPCS: 99213; G2211

== ENCOUNTER → 2025-04-30 08:03 | Outpatient (BNVA) | payer OTHER, SELFPAY | PROVIDERS: PCP Internal Medicine; Visit Provider Student in an Organized Health Care Education/Training Program | DX: M1A.0710 Idiopathic chronic gout, right ankle and foot, without tophus (tophi) (principal); Z79.899 Other long term (current) drug therapy | CPT/HCPCS: 99212 ==

== ENCOUNTER 2025-09-06 07:49 | Outpatient (REF) | payer OTHER, SELFPAY ==
--- OUTSIDE RECORDS SUMMARY | 2025-09-06 07:52 | XMS_ITS | Clinical Summary ---
Author Organization [facility] Address [address] [id number] Care Team Providers Care Siphon Operator Name Role Phone Melissa Michel Primary Care Provider [phone] Allergies No known active allergies Medications ibuprofen (MOTRIN) 600 mg tablet Take 600 mg by mouth every 8 hours as needed for pain. 10/11/2023 Active multivitamin (THERAGRAN) tablet Take 1 tablet by mouth once a day. Active allopurinoL (ZYLOPRIM) 100 mg tablet SMARTSI Tablet(s) By Mouth Daily 02/02/2025 Active colchicine (COLCRYS) 0.6 mg tablet SMARTSI Tablet(s) By Mouth Daily 01/30/2025 Active cyclobenzaprine (FLEXERIL) 10 mg tablet Take 1 tablet (10 mg total) by mouth 3 times a day as needed for muscle spasms. 30 tablet 02/14/2025 Active Active Problems No known active problems [...] Sign Reading Time Taken Comments Blood Pressure 137/82 02/14/2025 2:49 PM EDT Pulse 94 02/14/2025 2:49 PM EDT Temperature 36.6 C (97.9 F) 02/14/2025 2:49 PM EDT Respiratory Rate 18 02/14/2025 2:49 PM EDT Oxygen Saturation - - Inhaled Oxygen Concentration - - Weight 152.5 kg (336 lb 3.2 oz) 02/14/2025 2:49 PM EDT Height 188 cm (6' 2 ) 11/10/2023 12:34 PM EST Body Mass Index 43.17 11/10/2023 12:34 PM EST Plan of Treatment Upcoming Encounters Date Type Department Care Team (Late st Contact Info) Description 09/12/2025 2:45 PM EDT Office Visit [facility] Neurology [facility] [address] [place] [address] Keturah Siddiqui MD [address] [place] [address] 01/06/2026 1:00 PM EST Telehealth [facility] [address] [place] [address] Journeyman Welder: Juan Ramon Lynch MD PhD [address] [place] [address] Health Maintenance Due Date Last Done Comments Cologuard 1974 Colon Cancer Screening 1974 Colonoscopy 1974 FOBT / Fit Test 1974 HIV Screening 1974 Hepatitis C Screening 1974 Sigmoidoscopy 1974 DTaP,Tdap,and Td Vaccines (2 - Td or Tdap) 09/02/2021 09/02/2011 Pneumococcal Vaccine: 50+ Ye ars (1 of 1 - PCV) 2024 Zoster Vaccines (1 of 2) 2024 Alcohol/Substance Use Screening 11/28/2024 Depression Screening and Follow-Up 11/28/2024 Social Drivers of Health Maryam ual Screening 11/28/2024 COVID-19 Vaccine ( season) 2025 10/26/2021, 03/20/2021, 02/18/2021 Influenza Vaccine (#1) 2025 0, 10/30/2019, 09/26/2013 RSV Vaccine (60+ years old a nd patients) (1 - 1-dose 75+ series) 2049 Hepatitis B Vaccines Completed 09/03/2020, 03/05/2020, 01/30/2020 Insurance [employer] Care Teams Siphon Operator Relationship Specialty Start Date End Date Melissa Michel [address] [place] [id number] PCP - General Internal Medicine 04/18/25
--- OUTSIDE RECORDS SUMMARY | 2025-09-06 07:52 | XMS_ITS | Data Portability ---
Author Organization [place] [facility], Allergy Address [address] [place] [phone] Care Team Providers Care Manager Oracle Name Role Phone ERIKA BRYAN Primary Care Provider [phone] Assessment No assessment recorded. Plan of Treatment Reminders Order Date Submit Date Provider Last Modified By Organization Details Last Modified Time Details Appointments Establish ed 2025 11:00A M ETHAN Snow MD Not available Not available Not available Lab None recorded. Referral None recorded. Procedures polysomno graphy, diagnosti c (PROC) - need in lab sleep study 2024 025 [facility], [address] [place] [address], [id number], 04/10/2025 14:35:18 Surgeries None recorded. Imaging None recorded. Medication Orders None recorded. Patient TargetsNo targets recorded. Patient InstructionsNo instructions recorded. Reason for Referral None Reported. Results Created Date Observation Date Name Description Value Unit Range Abnormal Flag Note LastModifiedBy Organization Detail LastModifiedTime 04/09/2005/21/2020 sleep study , diagn ostic (PROC ) No observ ation record ed. [facility] [address], [address], 04/09/2025 14:16:48 04/09/20 sleep study , diagn ostic (PROC ) No observ ation record ed. [email or web address] Not Available 12:03:10 Result Notes None recorded. Problems Name Problem SNOMED Code Status Onset Date Resolution Date Notes Provider Name and Address Organization Details Recorded Time Obstructive sleep apnea syndrome 47908323 Active 025 ETHAN Snow MD [address] [address], [place], [phone], [facility] 5 10:34:17 Enlargement of tongue 35485530 Active 025 ETHAN Snow MD [address] [address], [place], [phone], [facility] [place] 5 10:59:00 Problem Notes None recorded. Procedures Surgical History Date Name Laterality Status Provider Name and Address Organization Details Recorded Time 04/09/2025 FFL_RE completed ETHAN IVAN MD [address] [address], [place], [address], [facility] 04/09/2025 10:35:07 Imaging Results None recorded. Procedure Notes None recorded. Medical Equipment None Reported. Medications Name Sig Start Date Stop Date Status Note LastModified by Organization Details LastModified Time cyclobenzapr ine 10 mg tablet TAKE 1 TABLET BY MOUTH 3 TIMES A DAY NEEDED FOR MUSCLE SPASMS. active Not Available Not Available No t Available meloxicam 15 mg tablet TAKE 1 TABLET BY MOUTH EVERY 24 HOURS active Not Available Not Available No t Available prednisone 20 mg tablet TAKE 1 TABLET BY MOUTH EVERY MORNING active Not Available Not Available No t Available allopurinol 100 mg tablet TAKE 1 TABLET BY MOUTH DAILY. active Not Available Not Available No t Available oxycodone-ac etaminophen 5 mg-325 mg tablet active Not Available Not Available Not Available prednisone 50 mg tablet TAKE 1 TABLET BY MOUTH EVERY DAY active Not Available Not Available No t Available indomethacin 50 mg capsule TAKE 1 CAP ORALLY EVERY 12 HOURS FOR 5 DAYS ADMINISTER WITH FOOD OR MILK active Not Available Not Available No t Available ibuprofen 600 mg tablet active Not Available Not Available Not Available colchicine 0.6 mg tablet TAKE 1 TABLET BY MOUTH EVERY DAY active Not Available Not Available No t Available Vitals Date Recorded Body height Body mass index (BMI) Body weight Provider Name and Address Organization Details Last Updated DateTime 04/09/2025 187.96 cm 41.1 kg/m2 903562.56 g Jesika Graves [facility] 04/09/2025 10:10:35 Social History None recorded. Functional Status None recorded. Mental Status None recorded. Family History Nothing Reported. Medical History No medical history recorded. Past Encounters Encounter ID Performer Location Encounter Start Date Encounter Closed Date Diagnosis/Indication Diagnosis SNOMED-CT Code Diagnosis ICD10 Code Diagnosis IMO Codes Diagnosis Note [id number] ETHAN IVAN MD [facility] [address] [place] [address] 04/09/2025 09:44:42 04/09/2025 11:02:10 Obstructive sleep apnea syndrome 69691719 G47.33 394010 Exam was notable for a thick neck, macrogloss ia, and symmetric mildly enlarged lingual tonsils. I reviewed his home sleep test which demonstrat ed an AHI of 8. He thinks this under reports his sleep apnea. I will obtain an in lab sleep study. Currently he is not a candidate for inspire but he may be depending on the results of the in-lab study if his sleep apnea severity is worse than on his home study. We will plan follow-up to review. Enlargement of tongue 25 [id number] Q38.2 6523 Likely contributi ng to ANAT. He tried a dental appliance in the past without success. Health Concerns Section Related Observation LastModified by Organization Detai ls LastModified Time None Recorded Concern Status LastModified by Organization Details LastModified Time None Recorded Advance Directives Directive None Recorded Payers Insurance Date Sequence Insurance Name Policy Number Policy Miramontes Covered Member ID Miramontes Member ID Guarantor Name 04/09/2025 1 [facility] NET PLAN (MEDICAID HMO) JOY Culver [id number] Pepeirene Mackeyeileen Notes Date Note Type Note Provider Name and Address Organization Details Recorded Time 04/09/2025 text/html ROS as noted in the HPI He has a history of ANAT. He has tried CPAP. The device would often fall off at night. He tried many different masks including full facemasks and nasal masks without success. He is interested in alternatives to CPAP. I reviewed his home sleep test which demonstrated an AHI of 8. He tried a dental appliance without success. ETHAN IVAN MD [address] [address], [place], [phone], [facility] - [facility] 04/09/2025 11:00:55
[2025-09-06 08:01] LABS: MANUAL DIFF FLAG NO
[2025-09-06 08:25] LABS: Hematocrit 48.1 % (42.0-52.0); Hemoglobin 16.6 g/dl (14.0-18.0); Imm Gran Abs Auto 0.03 X10*3/uL (0.00-0.03); Imm Gran Pct Auto 0.4 % (0.0-0.4); Lymphocytes Absolute Auto 2.4 X10*3/uL (1.2-4.9); Mean Corpuscular HGB Conc 34.5 g/dl (31.0-36.0); Mean Corpuscular Hemoglobin 32.0 pg (27.0-33.0); Mean Corpuscular Volume 92.9 fL (80.0-98.0); NRBC Abs Auto 0.000 X10*3/uL (0.0-0.012); NRBC Pct Auto 0.0 /100WBC (0.0-0.2); Platelet Count 325 X10*3/uL (160-400); Red Blood Count 5.18 X10*6/uL (4.60-5.80); White Blood Count 8.2 X10*3/uL (4.8-10.8)
[2025-09-06 08:53] LABS: Alanine Aminotransferase 47 U/L (0-40); Albumin Level 4.8 g/dL (3.5-5.0); Alkaline Phosphatase 91 U/L (39-117); Anion Gap 12 (12-20); Aspartate Amino Transferase 43 U/L (5-37); Blood Urea Nitrogen 15 mg/dL (9-16); Calcium 9.9 mg/dL (8.4-10.2); Carbon Dioxide 30 mmol/L (22-29); Chloride 103 mmol/L (96-108); Estimated Glomerular Filt Rate > 60; Potassium 4.8 mmol/L (3.3-5.1); Sodium 140 mmol/L (135-145); Total Protein 8.0 g/dL (6.5-8.0)
[2025-09-06 09:08] LABS: Uric Acid 5.3 mg/dL (3.4-7.0)
== END 2025-09-06 07:50 | disposition home or self-care (01) ==
LOC: HO.LAB 07:49
PROVIDERS: PCP Internal Medicine; Visit Provider Student in an Organized Health Care Education/Training Program
DX: M1A.0710 Idiopathic chronic gout, right ankle and foot, without tophus (tophi) (principal)
CPT/HCPCS: 36415; 80053; 84550; 85025; 85652; 86140

== ENCOUNTER 2025-09-12 08:47 | Outpatient (AMB) | payer OTHER, SELFPAY ==
--- NOTE | 2025-09-12 09:16 | MHC.OFFVIS ---
Vital Signs 09/12/25 09:19 Height 6 ft 2 in Weight 342 lb 2.519 oz BMI 43.9 BP 134/100 H Blood Pressure Location Lt brachial Position Sitting Pulse 77 Pulse Source Pulse Oximeter Pulse Oximetry (%) 98 Oxygen Delivery Method Room Air Intake Visit Reasons: follow up Intake Note: Patient presents for Gout follow up. Allergies Iodinated Contrast Media (IV CONTRAST) Allergy (Severe, Verified 09/12/25 09:17) Hives Medication List - Last Reconciled 09/12/25 by Sury Brooke MD allopurinol 300 mg PO DAILY 90 days colchicine 0.6 mg PO DAILY 90 days indomethacin 50 mg PO Q12H 5 days multivitamin 1 tab PO DAILY HPI Comments Details: Patient is a 49-year-old male with muscular dystrophy who presents for follow-up for non tophaceous non crystal proven gout. Interval History: Patient last seen 04/30/2025 with me. 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 Started on allopurinol 08/2024 Current Rheumatology Medication(s): Allopurinol 300mg Colchicine 0.6mg PFSH Medical History Muscular dystrophy Morbid obesity Concern about STD in male without diagnosis Surgical History History of biopsy (10/11/23) History of surgery on upper extremity Social History Household Members: Family Housing: House Alcohol intake: never Patient Tobacco Use Status: Never used Tobacco Review of Systems Const Details: Review of Systems Constitutional: Denies fever, chills, weight loss ENT: Denies vision changes, eye pain or eye redness, dental caries, dry mouth GI: Denies nausea, vomiting, diarrhea, abdominal pain, change in BM Pulm: Denies SOB, LOPEZ, hemoptysis, wheezing Cards: Denies chest pain, palpitations Skin: Denies Raynaud's, rash, nail changes, photosensitivity, 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 Well appearing and in no apparent painful distress MSK Hands Right Hand: Able to make a fist. No swelling or tenderness to palpation of the MCPs, PIPs or DIPs. Left Hand: Able to make a fist. No swelling or tenderness to palpation of the MCPs, PIPs or DIPs. Wrists Right Wrist: Full ROM to flexion and extension. No swelling or TTP Left Wrist: Full ROM to flexion and extension. No swelling or TTP Elbows Right Elbow: Full ROM. No swelling or TTP. No TTP of the medial epicondyle. No TTP of the lateral epicondyle Left Elbow: Full ROM. No swelling or TTP. No TTP of the medial epicondyle. No TTP of the lateral epicondyle Shoulders Right shoulder: Full ROM. No swelling noted. No TTP of the AC joint. No TTP of the subacromial bursa. No TTP of the posterior shoulder Left shoulder: Full ROM. No swelling noted. No TTP of the AC joint. No TTP of the subacromial bursa. No TTP of the posterior shoulder Knees Right knee: Full ROM. No swelling noted. No TTP of the knee joint line. No TTP of pes anserine bursa Left knee: Full ROM. No swelling noted. No TTP of the knee joint line. No TTP of pes anserine bursa. Crepitations felt bilaterally Ankles Right ankle: Good ankle dorsiflexion and plantar flexion. No swelling. No TTP of the ankle joint Left ankle: Good ankle dorsiflexion and plantar flexion. No swelling. No TTP of the ankle joint Feet Right foot: Negative squeeze test Left foot: Negative squeeze test Tender points? No tenderness to palpation of the bilateral trapezius, supraspinatus, anterior costochondral junctions, bilateral suboccipital muscle insertions SKIN No rashes Vital Signs: Last Vital Signs Pulse 77 09/12/25 09:19 BP 134/100 H 09/12/25 09:19 Pulse Ox 98 09/12/25 09:19 Oxygen Delivery Method Room Air 09/12/25 09:19 BMI result Body Mass Index 43.9 Results Reviewed Results Reviewed: Laboratory Tests 04/26/25 09/06/25 08:08 08:00 WBC 8.2 RBC 5.18 Hgb 16.6 Hct 48.1 Plt Count 325 ESR 8 Sodium 140 Potassium 4.8 Chloride 103 Carbon Dioxide 30 H BUN 15 Creatinine 0.76 Uric Acid 7.5 H 5.3 AST 43 H ALT 47 H C-Reactive Protein 0.43 Assessment & Plan Assessment & Plan (1) Idiopathic chronic gout of foot without tophus: Comment: Diagnosed 08/2024 Allopurinol and colchicine started 08/2024 Code(s): M1A.0790 - Idiopathic chronic gout, unspecified ankle and foot, without tophus (tophi) Category: Medical Qualifiers: Laterality: right Qualified Code(s): M1A.0710 - Idiopathic chronic gout, right ankle and foot, without tophus (tophi) Plan: #Non crystal proven non tophaceous gout Patient is a 49-year-old male with muscular dystrophy here to for follow up of non crystal proven non tophaceous gout. More consistent with his allopurinol at his uric acid is currently at goal Plan - Allopurinol to 300mg daily - Goal uric acid 4-6 - Continue colchcine 0.6mg daily for gout prophylaxis for 90 days then stop - RTC 6 months - Labs before visit: CBC, CMP, ESR, CRP, uric acid (2) On allopurinol therapy: Code(s): Z79.899 - Other termination clerk (current) drug therapy Category: Medical Plan: #Long-term Current Use of Allopurinol Risks and benefits of allopurinol discussed with patient Benefits include decreased gout flares, remission of gout and reduction of tophi Risks include allopurinol hypersensitivity syndrome which is a severe cutaneous adverse reaction associated with allopurinol use particularly in patients who are HLA [id number] positive, increased transaminases, GI upset including diarrhea, nausea and vomiting, and other dermatologic manifestations. (3) On colchicine therapy: Code(s): Z79.899 - Other termination clerk (current) drug therapy Category: Medical Plan: #Long-term use of colchicine Risks and benefits of long-term colchicine for the management of this patient's gout discussed with patient. Benefits include reduced occurrence of flares while we titrate and regulate his uric acid on allopurinol and other uric acid lowering medications. ? Risks include worsening myalgias especially if on statins and GI upset including diarrhea Plan I spent 30 minutes reviewing the record and labs, seeing the patient, discussing the treatment plan and documenting in the medical record Orders: Orders Complete Blood Count Auto Diff 6 Months M1A.0710 - Idiopathic chronic gout, right ankle and foot, without tophus (tophi) Comprehensive Met. Panel 6 Months M1A.0710 - Idiopathic chronic gout, right ankle and foot, without tophus (tophi) C Reactive Protein 6 Months M1A.0710 - Idiopathic chronic gout, right ankle and foot, without tophus (tophi) Uric Acid 6 Months M1A.0710 - Idiopathic chronic gout, right ankle and foot, without tophus (tophi) Medications: Refilled allopurinol 300 mg PO DAILY 90 tabs 1RF 90 days M10.9 - Gout, unspecified, M1A.0710 - Idiopathic chronic gout, right ankle and foot, without tophus (tophi) colchicine 0.6 mg PO DAILY 90 tabs 0RF 90 days M10.9 - Gout, unspecified, M1A.0710 - Idiopathic chronic gout, right ankle and foot, without tophus (tophi) Coding Level of Care Code Est Pt Level 4 (88793) Complex EM visit Add On G2211 Diagnoses Idiopathic chronic gout of right foot without tophus M1A.0710 Laterality: right On allopurinol therapy Z79.899 On colchicine therapy Z79.899
[2025-09-12 09:19] VITALS: BP 134/100; PULSE 77; O2SAT 98; BMI 43.9
--- OUTSIDE RECORDS SUMMARY | 2025-09-12 09:40 | XMS_ITS | Clinical Summary ---
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 Name Role Phone Melissa Michel Primary Care Provider [phone] Allergies No known active allergies Medications ibuprofen [...] Description 09/12/2025 2:45 PM EDT Office Visit [facility] [address] [place] [address] Keturah Siddiqui MD [address] [place] [address] 01/06/2026 1:00 PM EST Telehealth [facility] [address] [place] [address] Recreation Program Coordinator: Juan Ramon Lynch MD PhD [address] [place] [address] Health Maintenance Due Date Last Done Comments [...] 03/05/2020, 01/30/2020 Insurance [employer] Care Teams Cracking And Fanning Machine Operator Relationship Specialty Start Date End Date Melissa Michel [address] [place] [id number] PCP - General Internal Medicine 04/18/25
--- OUTSIDE RECORDS SUMMARY | 2025-09-12 09:40 | XMS_ITS ---
Author Name [facility] Organization Unknown Care Team Organization Name Specialty Phone Email Start Date End Da te [facility] Melissa Michel Primary Care 10/05/2022 4
== END 2025-09-12 09:50 | disposition home or self-care (01) ==
LOC: HO.RHES 08:48
PROVIDERS: PCP Internal Medicine; Visit Provider Student in an Organized Health Care Education/Training Program
DX: M1A.0710 Idiopathic chronic gout, right ankle and foot, without tophus (tophi) (principal); Z79.899 Other long term (current) drug therapy
CPT/HCPCS: 99214

== ENCOUNTER → 2025-09-12 08:47 | Outpatient (BNVA) | payer OTHER, SELFPAY | PROVIDERS: PCP Internal Medicine; Visit Provider Student in an Organized Health Care Education/Training Program | DX: M1A.0710 Idiopathic chronic gout, right ankle and foot, without tophus (tophi) (principal); G71.00 Muscular dystrophy, unspecified; Z79.899 Other long term (current) drug therapy | CPT/HCPCS: 99212 ==